=== PATIENT | female | born 1950 | race Caucasian/White ===

== ENCOUNTER → 2016-06-25 | Outpatient (CLI) | payer BC ==
[~2016-06-25] MED LIST: ACT300 PO; CALC200T PO; IMD/2 PO; LEVO75TA PO; MISCCAP80 PO; SERT50TA PO; TRAMTAB5 PO
--- NOTE | 2016-06-25 14:37 | MAMMOGRAPHY REPORT ---
BILATERAL DIGITAL SCREENING MAMMOGRAM WITH CAD: 06/25/2016 CLINICAL HISTORY: Routine screening. Patient has no complaints. TECHNIQUE: Current study was also evaluated with a Computer Aided Detection (CAD) system. COMPARISON: Comparison is made to exams dated: 06/23/2015 mammogram, 06/22/2014 mammogram, 06/19/2013 mammogram, 06/16/2012 mammogram, and 06/11/2011 mammogram - [facility]. BREAST COMPOSITION: There are scattered areas of fibroglandular density in both breasts. FINDINGS: The parenchymal pattern is unchanged. There are a few stable punctate benign-appearing m icrocalcifications. No developing mass, architectural distortion or cluster of suspicious microcalc ifications is seen in either breast. IMPRESSION: ACR BI-RADS CATEGORY 2: BENIGN There is no mammographic evidence of malignancy. A 1 year screening mammogram is recommended. The p atient will receive written notification of the results. Approximately 10% of breast cancers are not detected with mammography. A negative mammographic repor t should not delay biopsy if a clinically suggestive mass is present. Rosa Day M.D. ay/:06/25/2016 12:41:29 Clinical Quality Rn: Bridgette Goins, [facility] letter sent: Normal 1/2 BI-RADS Code: ACR BI-RADS Category 2: Benign
== END | disposition home or self-care (01) ==
LOC: C.MAMM 08:57
PROVIDERS: ATTEND Internal Medicine
DX: Z12.31 Encounter for screening mammogram for malignant neoplasm of breast (principal)

== ENCOUNTER → 2016-06-25 | Outpatient (CLI) | payer BC | END | disposition home or self-care (01) | LOC: C.LABSPEC 17:02 | PROVIDERS: ATTEND Podiatrist Foot & Ankle Surgery | DX: L60.0 Ingrowing nail (principal); Z12.31 Encounter for screening mammogram for malignant neoplasm of breast ==

== ENCOUNTER → 2016-08-13 | Outpatient (CLI) | payer BC ==
[2016-08-13 10:23] LABS: ALT/SGPT 33 U/L (12-78); BLOOD UREA NITROGEN 19 mg/dl (7-18); BUN/CREATININE RATIO 21.6 (10-20); CALCIUM 10.4 mg/dl (8.5-10.1); CARBON DIOXIDE 29 mmol/L (21-32); CHLORIDE 103 mmol/L (98-107); GLUCOSE 126 mg/dl (70-99); POTASSIUM 4.6 mmol/L (3.5-5.1); SODIUM 140 mmol/L (136-145)
[2016-08-13 10:33] LABS: ALB/GLOB RATIO 0.9 (0.9-2); ALKALINE PHOSPHATASE 168 U/L (45-117); AST/SGOT 22 U/L (15-37)
[2016-08-13 10:44] LABS: ESTIMATED AVERAGE GLUCOSE 137 mg/dl; HA1C FLAG Normal (Normal)
== END | disposition home or self-care (01) ==
LOC: C.LAB1850 08:59
PROVIDERS: ATTEND Internal Medicine Endocrinology, Diabetes & Metabolism
DX: E11.9 Type 2 diabetes mellitus without complications (principal); E03.9 Hypothyroidism, unspecified; E83.52 Hypercalcemia

== ENCOUNTER → 2016-08-28 | Outpatient (CLI) | payer BC | END | disposition home or self-care (01) | LOC: C.LAB 12:35 | PROVIDERS: ATTEND Nurse Practitioner Family | DX: N39.0 Urinary tract infection, site not specified (principal); R35.0 Frequency of micturition ==

== ENCOUNTER → 2016-09-24 | Outpatient (CLI) | payer BC | END | disposition home or self-care (01) | LOC: C.LABSPEC 17:27 | PROVIDERS: ATTEND Nurse Practitioner Family | DX: N39.0 Urinary tract infection, site not specified (principal) ==

== ENCOUNTER → 2016-10-04 | Outpatient (CLI) | payer BC ==
[2016-10-04 13:04] LABS: ESTIMATED AVERAGE GLUCOSE 126 mg/dl; HA1C FLAG Normal (Normal)
[2016-10-04 13:07] LABS: CALCIUM 10.9 mg/dl (8.5-10.1)
== END | disposition home or self-care (01) ==
LOC: C.LAB1850 11:52
PROVIDERS: ATTEND Physician Assistant
DX: E11.9 Type 2 diabetes mellitus without complications (principal); E83.52 Hypercalcemia

== ENCOUNTER → 2016-10-15 | Outpatient (CLI) | payer BC ==
[2016-10-15 10:32] LABS: ALT/SGPT 50 U/L (12-78); CALCIUM 9.4 mg/dl (8.5-10.1); CREATININE 0.78 mg/dl (0.60-1.20)
[2016-10-15 10:43] LABS: CHOLESTEROL 194 mg/dl (0-200); CHOLESTEROL/HDL RATIO 2.7; HDL CHOLESTEROL 71 mg/dl; LDL CHOLESTEROL CALCULATED 106 mg/dl; TRIGLYCERIDES 83 mg/dl (0-150); VERY LOW DENSITY LIPOPROT CALC 17 mg/dl
[2016-10-15 10:49] LABS: CALCIUM URINE 9.3 mg/dl
[2016-10-15 11:56] LABS: ESTIMATED AVERAGE GLUCOSE 123 mg/dl; HA1C FLAG Normal (Normal)
[2016-10-19 02:16] LABS: PARATHYR RELATED PROT *34478X 17 pg/mL (14-27)
== END | disposition home or self-care (01) ==
LOC: C.LAB1850 08:40
PROVIDERS: ATTEND Physician Assistant
DX: E83.52 Hypercalcemia (principal); M85.80 Other specified disorders of bone density and structure, unspecified site; E11.9 Type 2 diabetes mellitus without complications; E78.5 Hyperlipidemia, unspecified

== ENCOUNTER → 2016-12-25 | Outpatient (CLI) | payer BC ==
[2016-12-25 12:28] LABS: ESTIMATED AVERAGE GLUCOSE 131 mg/dl; HA1C FLAG Normal (Normal)
[2016-12-25 12:48] LABS: ALT/SGPT 33 U/L (12-78); CHOLESTEROL 140 mg/dl (0-200); CREATININE 0.77 mg/dl (0.60-1.20); TRIGLYCERIDES 79 mg/dl (0-150); VERY LOW DENSITY LIPOPROT CALC 16 mg/dl
[2016-12-25 12:49] LABS: CHOLESTEROL/HDL RATIO 2.2; HDL CHOLESTEROL 65 mg/dl; LDL CHOLESTEROL CALCULATED 59 mg/dl
[2016-12-25 14:11] LABS: RATIO 10.9 mcg/mg (0-30.0)
== END | disposition home or self-care (01) ==
LOC: C.LAB1850 10:20
PROVIDERS: ATTEND Internal Medicine Endocrinology, Diabetes & Metabolism
DX: E87.5 Hyperkalemia (principal); E11.9 Type 2 diabetes mellitus without complications

== ENCOUNTER → 2017-01-21 | Outpatient (CLI) | payer BC ==
--- NOTE | 2017-01-21 13:06 | DIAGNOSTIC IMAGING REPORT ---
HEAD WITHOUT CONTRAST (CT) CLINICAL HISTORY: 66 years-old Female presenting with fall, head injury, headache, nausea and vomiting, vision changes. TECHNIQUE: Multidetector CT imaging of the head was performed without the use of intravenous contrast. IV contrast: None. A dose lowering technique was used consistent with the principles of ALARA (as low as reasonably achievable). COMPARISON: None. CT DOSE (mGy.cm): The estimated cumulative dose is 537.48 mGy.cm. FINDINGS: Maintenance Custodian topogram: Unremarkable. Ventricles and sulci normal in size. Brain parenchyma normal in appearance with preserved osuna-white differentiation. No mass effect or midline shift. No hemorrhage or acute territorial infarct. No extra-axial fluid collection. Polypoid mucosal thickening in the right maxillary sinus. Calvarium intact. IMPRESSION: 1. No acute intracranial pathology. Electronically signed by: Vinny Schulte M.D. 01/21/2017 1:05 PM Dictated Date/Time: 01/21/2017 1:03 PM
== END | disposition home or self-care (01) ==
LOC: C.CTS 12:44
PROVIDERS: ATTEND Nurse Practitioner Adult Health
DX: S09.90XA Unspecified injury of head, initial encounter (principal); W19.XXXA Unspecified fall, initial encounter; R11.2 Nausea with vomiting, unspecified

== ENCOUNTER → 2017-01-21 | Outpatient (CLI) | payer BC ==
--- NOTE | 2017-01-21 09:28 | DIAGNOSTIC IMAGING REPORT ---
CERVICAL SPINE 5 VIEWS HISTORY: Neck pain. S19.9XXA Injury of neckW19.XXXA [id number] COMPARISON: Cervical spine 11/12/2013. FINDINGS: The cervical spine is visualized from C1 through the superior endplate of T1. There is no fracture. No subluxation. Mild reversal of the normal lordotic curvature, unchanged. Moderate to severe disc space narrowing at C5-C6 and C6-C7 with endplate osteophytes. This is also unchanged. [id number]-[id number] facet osteoarthritis throughout the cervical spine most pronounced in the lower cervical region. Mild right and mild to moderate left neural foraminal narrowing is again noted. Mild levoscoliosis of the cervicothoracic junction. Prevertebral soft tissues and the atlantodens interval are intact. IMPRESSION: No fracture or subluxation within the cervical spine. Degenerative changes are again noted and not significantly changed. Electronically signed by: Christofer Andrade M.D. 01/21/2017 9:27 AM Dictated Date/Time: 01/21/2017 9:25 AM
== END | disposition home or self-care (01) ==
LOC: C.RAD1850 09:09
PROVIDERS: ATTEND Nurse Practitioner Adult Health
DX: S19.9XXA Unspecified injury of neck, initial encounter (principal); W19.XXXA Unspecified fall, initial encounter

== ENCOUNTER → 2017-04-10 | Outpatient (CLI) | payer BC ==
[2017-04-10 12:15] LABS: ESTIMATED AVERAGE GLUCOSE 128 mg/dl; HA1C FLAG Normal (Normal)
[2017-04-10 12:32] LABS: CALCIUM 9.4 mg/dl (8.5-10.1)
[2017-04-10 12:46] LABS: THYROID STIMULATING HORMONE 0.503 uIu/ml (0.300-4.500)
== END | disposition home or self-care (01) ==
LOC: C.LAB 09:47
PROVIDERS: ATTEND Physician Assistant
DX: R35.0 Frequency of micturition (principal); E03.9 Hypothyroidism, unspecified; E11.9 Type 2 diabetes mellitus without complications; E83.52 Hypercalcemia

== ENCOUNTER → 2017-05-24 | Outpatient (CLI) | payer BC | END | disposition home or self-care (01) | LOC: C.LABSPEC 17:37 | PROVIDERS: ATTEND Physician Assistant | DX: N89.8 Other specified noninflammatory disorders of vagina (principal) ==

== ENCOUNTER → 2017-06-03 | Outpatient (CLI) | payer BC | END | disposition home or self-care (01) | LOC: C.LABSPEC 10:56 | PROVIDERS: ATTEND Urology | DX: N39.41 Urge incontinence (principal) ==

== ENCOUNTER → 2017-06-04 | Outpatient (CLI) | payer BC | END | disposition home or self-care (01) | LOC: C.LABSPEC 14:11 | PROVIDERS: ATTEND Physician Assistant | DX: L29.8 Other pruritus (principal) ==

== ENCOUNTER → 2017-06-26 | Outpatient (CLI) | payer BC ==
--- NOTE | 2017-06-26 15:22 | MAMMOGRAPHY REPORT ---
BILATERAL DIGITAL SCREENING MAMMOGRAM TOMOSYNTHESIS WITH CAD: 06/26/2017 CLINICAL HISTORY: Routine screening. Patient has no complaints. TECHNIQUE: Breast tomosynthesis in addition to standard 2D mammography was performed. Current study was also evaluated with a Computer Aided Detection (CAD) system. COMPARISON: Comparison is made to exams dated: 06/25/2016 mammogram, 06/23/2015 mammogram, 06/22/2014 m ammogram, 06/19/2013 mammogram, 06/16/2012 mammogram, and 06/11/2011 mammogram - [facility]. BREAST COMPOSITION: There are scattered areas of fibroglandular density in both breasts. FINDINGS: No suspicious masses, calcifications, or areas of architectural distortion are noted in ei ther breast. There has been no significant interval change compared to prior exams. IMPRESSION: ACR BI-RADS CATEGORY 1: NEGATIVE There is no mammographic evidence of malignancy. A 1 year screening mammogram is recommended. The pa tient will receive written notification of the results. Approximately 10% of breast cancers are not detected with mammography. A negative mammographic report should not delay biopsy if a clinically suggestive mass is present. Majo Rogers M.D. /:06/26/2017 09:01:43 Wrapper Selector: Shanelle TRIVEDI(Libby)(M), [facility] letter sent: Normal 1/2 BI-RADS Code: ACR BI-RADS Category 1: Negative
== END | disposition home or self-care (01) ==
LOC: C.MAMM 08:45
PROVIDERS: ATTEND Internal Medicine
DX: Z12.31 Encounter for screening mammogram for malignant neoplasm of breast (principal)

== ENCOUNTER → 2017-10-17 | Outpatient (CLI) | payer BC | END | disposition home or self-care (01) | LOC: C.LAB1850 10:36 | PROVIDERS: ATTEND Nurse Practitioner Adult Health | DX: N39.41 Urge incontinence (principal) ==

== ENCOUNTER → 2018-01-13 | Outpatient (CLI) | payer BC ==
[2018-01-13 15:02] LABS: ALBUMIN 3.8 gm/dl (3.4-5.0); TOTAL PROTEIN 7.9 gm/dl (6.4-8.2)
== END | disposition home or self-care (01) ==
LOC: C.LAB1850 12:37
PROVIDERS: ATTEND Internal Medicine
DX: K74.3 Primary biliary cirrhosis (principal)

== ENCOUNTER 2024-01-28 05:41 | Observation (INO) ==
--- NOTE | 2024-01-03 13:48 | PAT Medication Instructions ---
Medication Instructions Date of Service January 03, 2024 Home Medications Medication Instructions Recorded triamcinolone acetonide 0.1 % 1 applic topical BID #453.6 grams 05/17/23 topical cream atorvastatin 20 mg tablet 20 mg PO QPM #90 tabs 06/19/23 methenamine hippurate 1 gram tablet 1 g PO BID #180 tabs 09/12/23 mupirocin 2 % topical ointment 1 applic topical BID #15 grams 10/09/23 meloxicam 7.5 mg tablet 7.5 - 15 mg (1 - 2 x 7.5 mg) PO 11/06/23 DAILY #30 tabs levothyroxine 88 mcg tablet 88 mcg PO QAM #90 tabs 11/25/23 aspirin 81 mg tablet 81 mg PO QAM ascorbic acid (vitamin C) 1,000 mg tablet (Vitamin C) 1 g PO QAM calcium carbonate (Calcium 500) 500 mg PO QAM triamcinolone acetonide 0.1 % topical cream 1 applic topical BID atorvastatin 20 mg tablet 20 mg PO QPM methenamine hippurate 1 gram tablet 1 g PO BID mupirocin 2 % topical ointment 1 applic topical BID meloxicam 7.5 mg tablet 7.5 - 15 mg (1 - 2 x 7.5 mg) PO DAILY levothyroxine 88 mcg tablet 88 mcg PO QAM Probiotic 1 cap PO DAILY bupropion HCl 150 mg tablet,12 hr sustained-release 150 mg PO QAM cranberry 500 mg capsule 500 mg PO BID escitalopram oxalate 10 mg tablet 10 mg PO QAM tirzepatide 2.5 mg/0.5 mL subcutaneous pen injector (Mounjaro) 2.5 mg subcut Q7D ursodiol 300 mg capsule 600 mg PO BID STOP 7 days before surgery tirzepatide 2.5 mg/0.5 mL subcutaneous pen injector (Mounjaro) 2.5 mg subcut Q7D ASK your surgeon for instructions meloxicam 7.5 mg tablet 7.5 - 15 mg (1 - 2 x 7.5 mg) PO DAILY ASK your prescriber and surgeon aspirin 81 mg tablet 81 mg PO QAM STOP taking 24 hours before surgery triamcinolone acetonide 0.1 % topical cream 1 applic topical BID mupirocin 2 % topical ointment 1 applic topical BID DO NOT take the morning of surgery ascorbic acid (vitamin C) 1,000 mg tablet (Vitamin C) 1 g PO QAM calcium carbonate (Calcium 500) 500 mg PO QAM Probiotic 1 cap PO DAILY cranberry 500 mg capsule 500 mg PO BID ursodiol 300 mg capsule 600 mg PO BID Take morning of surgery With a small sip of water, OTHERWISE NOTHING TO EAT OR DRINK AFTER MIDNIGHT: methenamine hippurate 1 gram tablet 1 g PO BID levothyroxine 88 mcg tablet 88 mcg PO QAM bupropion HCl 150 mg tablet,12 hr sustained-release 150 mg PO QAM escitalopram oxalate 10 mg tablet 10 mg PO QAM Take evening before surgery atorvastatin 20 mg tablet 20 mg PO QPM methenamine hippurate 1 gram tablet 1 g PO BID cranberry 500 mg capsule 500 mg PO BID ursodiol 300 mg capsule 600 mg PO BID Other Notes If you have any questions please call us at [phone] or [phone] or [phone] or [phone]
--- NOTE | 2024-01-08 13:04 | Anesthesiology Consultation ---
Date of Service January 08, 2024 Assessment & Plan (1) Encounter for pre-operative examination: - Check BSG AM DOS - Infectious disease screening: Per assessment on 01/08/24: No known recent infectious disease contacts or current infectious disease symptoms. - Tirzepatide instructions: Patient informed at PAT visit to stop 7 days prior to surgery- voiced understanding. DOS 01/27. Advised last dose to be 01/19. - Preop EKG: Done 01/08/[address]/TWA, consider lateral ischemia. Patient made aware cardiac preop evaluation needed prior to surgery > Scheduled with [facility] cardio. Patient acceptable risk for surgery pending preop cardiology evaluation ([facility], appt 01/22). Chart Review Chart Review: Patient seen in Pre Admission Testing Teaching & Discussion Pre-Anesthesia Teaching/Discussion Notes: Instructed NPO after midnight before surgery,except medications with 15 cc of water. Medication instructions provided according to the [facility] guidelines. History Surgery Operation Date: 01/28/24 07:15 Proposed Procedures p C5-C6, C6-C7 Cervical Artificial Disc Arthroplasty - Mark Anthony Crain MD Height/Weight Height: 5 ft 1 in Weight: 72.7 kg Allergies Allergy/AdvReac Type Severity Reaction Status Date / Time doxycycline Allergy Unknown Tongue Verified 01/03/24 12:53 swelling metformin Allergy GI Upset Verified 01/06/24 16:14 propranolol [From Inderal LA] Allergy Unknown Verified 01/03/24 12:53 sulfamethoxazole Allergy Hives Verified 01/03/24 12:53 [From Bactrim] trimethoprim [From Bactrim] Allergy Hives Verified 01/03/24 12:53 codeine AdvReac Unknown GI upset Verified 01/03/24 12:53 erythromycin base AdvReac Unknown GI upset Verified 01/03/24 12:53 Medications Home Medications Medication Instructions Recorded Confirmed Last Taken aspirin 81 mg tablet 81 mg PO QAM 12/13/18 01/03/24 05/11/22 ascorbic acid (vitamin C) 1,000 mg 1 g PO QAM 01/05/19 01/03/24 05/16/22 tablet (Vitamin C) calcium carbonate (Calcium 500) 500 mg PO QAM 01/05/19 01/03/24 01/18/19 triamcinolone acetonide 0.1 % 1 applic topical BID #453.6 grams 05/17/23 01/03/24 Unknown topical cream atorvastatin 20 mg tablet 20 mg PO QPM #90 tabs 06/19/23 01/03/24 Unknown methenamine hippurate 1 gram tablet 1 g PO BID #180 tabs 09/12/23 01/03/24 Unknown mupirocin 2 % topical ointment 1 applic topical BID #15 grams 10/09/23 01/03/24 Unknown meloxicam 7.5 mg tablet 7.5 - 15 mg (1 - 2 x 7.5 mg) PO 11/06/23 01/03/24 Unknown DAILY #30 tabs levothyroxine 88 mcg tablet 88 mcg PO QAM #90 tabs 11/25/23 01/03/24 Unknown Probiotic 1 cap PO DAILY 01/03/24 01/03/24 Unknown bupropion HCl 150 mg tablet,12 hr 150 mg PO QAM 01/03/24 01/03/24 Unknown sustained-release cranberry 500 mg capsule 500 mg PO BID 01/03/24 01/03/24 Unknown escitalopram oxalate 10 mg tablet 10 mg PO QAM 01/03/24 01/03/24 Unknown tirzepatide 2.5 mg/0.5 mL 2.5 mg subcut Q7D 01/03/24 01/03/24 Unknown subcutaneous pen injector (Patrick) ursodiol 300 mg capsule 600 mg PO BID 01/03/24 01/03/24 Unknown Past Medical History Medical History Asthma Per records, patient denies Cervical stricture or stenosis Degenerative disc disease, cervical Depression Diabetes mellitus, type 2 NIDDM Diabetic peripheral neuropathy associated with type 2 diabetes mellitus Dyslipidemia Frequent UTI No current issues History of colon polyps History of COVID-19 07/2021: headache,"cold like symtoms" > resolved History of cystocele History of migraine History of renal calculi Hx of benign essential tremor Tremor "resolved" after [facility] focus ultrasound Hx of blood clots Right optic nerve clot ~2019, 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 Hypothyroidism IBS (irritable bowel syndrome) Memory loss or impairment Osteoarthritis Osteopenia Overactive bladder Primary biliary cirrhosis Taking Ursodiol "Controlled" Rosacea Scoliosis Stenosis, spinal, lumbar Unsteady gait Urge incontinence of urine Past Family History Family History Mother Breast cancer Brother Hypertension Daughter Family history of reaction to anesthesia "she gets mean" Grandmother (Paternal) Family history of diabetes mellitus Diabetes Myocardial infarction Uncle Esophageal cancer Sister Hypertension Aunt Ovarian cancer Denies family history of Prostate cancer Past Surgical History Surgical History History of blepharoplasty History of colonoscopy History of esophagogastroduodenoscopy (EGD) History of knee replacement Left History of partial hysterectomy History of rhytidectomy Nausea and vomiting after administration of anesthetic agent S/P implantation of urinary electronic stimulator device Removed Past Anesthesia History No Hx of Anesthesia Complications and No Family Hx of Anesthesia Complications History of PONV History of PONV (Single episode) and Hx of Motion Sickness (Boats) Social History Smoking Status: Current every day smoker tobacco type: cigarettes Smoking cigarettes per day: 15 cigs/day Do You Dip or Chew Tobacco: No Hx Alcohol Use: Yes Alcohol type: wine alcohol intake frequency: holidays/special occasions only Hx Substance Use: No substance use type: does not use Review of Systems Patient denies chest pain, shortness of breath, fever, chills, cough, wheezing, palpitations. Physical Exam Vital Signs BP 104/68 P 59 TEMP 97.5 SP02 96%RA RESP 16 Physical Mildly decreased cervical extension range of motion. Full TMJ range of motion. TMD 3 finger breaths Mallampati Score III Dentition: intact, implants (several upper/lower- exact locations unsure) Lungs: clear throughout to auscultation Cardiac: regular rate and rhythm, no murmurs noted Spine: normal Carotid arteries: negative bruit Extremities: no LE edema Lab Results Anesthesia Preop Results Results Anesthesia Widget: WBC 7.33 K/ul (4.8-10.8) 01/08/24 Hgb 16.2 g/dl (12.0-16.0) H 01/08/24 Hct 47.1 % (37.0-47.0) H 01/08/24 Plt 266 K/uL (130-400) 01/08/24 Na 139 mmol/L (136-145) 01/08/24 K 4.6 mmol/L (3.5-5.1) 01/08/24 Cl 102 mmol/L (98-107) 01/08/24 CO2 30 mmol/L (21-32) 01/08/24 BUN 18 mg/dl (6-23) 01/08/24 Creat 0.75 mg/dl (0.6-1.2) 01/08/24 Glucose Level 96 mg/dl (70-99(Fasting)) 01/08/24 PT 10.4 Seconds (9.0-12.0) 01/08/24 PTT 26 Seconds (21-31) 01/08/24 INR 1.0 (0.9-1.1) 01/08/24 HA1c 7.0 % (4.5-5.6) H 01/08/24 Blood Type O Negative 01/08/24 Antibody Screen NEGATIVE 01/08/24 Testing Electrocardiogram Date: 01/08/24 SB with sinus arrhythmia at 55bpm. LAFB. ST/TWA, consider lateral ischemia. Chest X-Ray Date: 01/08/24 FINDINGS: The lungs are clear. Cardiac silhouette is normal in size. No pleural effusions. No pneumothorax. Mild S-shaped scoliosis of the thoracolumbar spine again noted. No acute fractures. IMPRESSION: No acute process.
[2024-01-28] MEDS: LR 15ML/HR IV SCH (06:09)
[2024-01-28] MEDS: LR 60ML/HR IV SCH (06:17)
[2024-01-28] MEDS ORDERED: ROCURONIUM BROMIDE 10 MG/ML 5 ML VIAL IV ONE (06:54)
[2024-01-28] MEDS ORDERED: fentaNYL citrate PF 100 MCG/2 ML VIAL ONE ×3 (06:54→08:21)
[2024-01-28] MEDS ORDERED: MIDAZOLAM HCL 1 MG/ML 2ML VIAL ONE (06:54)
[2024-01-28] MEDS ORDERED: ONDANSETRON INJ 2 MG/ML 2 ML VIAL ONE (06:54)
[2024-01-28] MEDS ORDERED: GLYCOPYRROLATE 0.2 MG/ML VIAL ONE (06:54)
[2024-01-28] MEDS ORDERED: PROPOFOL IV EMULSION 10 MG/ML 20 ML VIAL IV ONE (06:54)
[2024-01-28] MEDS ORDERED: DEXAMETHASONE SOD INJ 4 MG/ML VIAL ONE (06:54)
[2024-01-28] MEDS ORDERED: LIDOCAINE 2% 2 ML VIAL/AMP(20MG/ML) INFIL ONE (06:54)
[2024-01-28] MEDS ORDERED: SUGAMMADEX SODIUM 200 MG/2 ML VIAL IV ONE (06:57)
[2024-01-28] MEDS ORDERED: ONDANSETRON INJ 2 MG/ML 2 ML VIAL IV PRN (07:00)
[2024-01-28] MEDS ORDERED: ATROPINE SULFATE 0.1 MG/ML 10ML SYR IV PRN (07:00)
[2024-01-28] MEDS ORDERED: ePHEDrine sulfate 50 MG/ML AMP IV PRN (07:00)
--- NOTE | 2024-01-28 07:17 | History & Physical Bridge Note ---
Date of Service January 28, 2024 History & Physical Bridge Note I have examined the patient, reviewed the History & Physical and in the interval since the performance of the History & Physical I have noted the following changes of clinical significance: no changes noted
[2024-01-28] MEDS: ceFAZolin 2000MG 2,000 MG/15 ML SYR IV SCH (07:20)
[2024-01-28] MEDS: VANCOMYCIN HCL 1000MG/20ML VIAL ONE (08:38)
[2024-01-28] MEDS: THROMBIN 5000 UNITS KIT ONE (10:41)
[2024-01-28] MEDS: GELATIN SPONGE 12-7MM ONE (10:41)
[2024-01-28] MEDS: FLOSEAL HEMOSTATIC MATRIX 10ML TOP ONE (10:42)
[2024-01-28] MEDS ORDERED: DO NOT ADMINISTER PNEUMOCOCCAL VACCINE PRN (10:49)
[2024-01-28] MEDS ORDERED: diphenhydrAMINE Capsule 25 MG CAP PO PRN (10:49)
[2024-01-28] MEDS ORDERED: dexAMETHasone 8 MG in SYRINGE 0 ML IV PRN (10:49)
[2024-01-28] MEDS ORDERED: ONDANSETRON 4 MG OD TAB PO PRN (10:49)
[2024-01-28] MEDS ORDERED: ACETAMINOPHEN 1,000 MG/100 ML VIAL IV PRN (10:49)
[2024-01-28] MEDS ORDERED: RACEPINEPHRINE 2.25% NEBU SOLN 0.5 ML VIAL INH PRN (10:49)
[2024-01-28] MEDS ORDERED: PROMETHAZINE 12.5 MG/50.5 ML BAG IV PRN (10:49)
[2024-01-28] MEDS ORDERED: LORazepam 0.5 MG TAB PO PRN (10:49)
[2024-01-28] MEDS ORDERED: SOD PHOSPHATE/SOD BIPHOSPHATE ENEMA 132 ML BTL PR PRN (10:49)
[2024-01-28] MEDS ORDERED: METOCLOPRAMIDE HCL INJ 5 MG/ML 2 ML VIAL IV PRN (10:49)
[2024-01-28] MEDS ORDERED: hydrOXYzine HCl 25 MG TAB PO PRN (10:49)
[2024-01-28] MEDS ORDERED: LORazepam 2 MG/1 ML VIAL IV PRN (10:49)
[2024-01-28] MEDS ORDERED: NALOXONE HCL 0.4 MG/1 ML VIAL/CARP IV PRN (10:49)
[2024-01-28] MEDS ORDERED: ALUMINUM/MAGNESIUM SUSP 30 ML UDC PO PRN (10:49)
[2024-01-28] MEDS ORDERED: MAGNESIUM HYDROXIDE SUSP 30 ML UDC PO PRN (10:49)
[2024-01-28] MEDS ORDERED: HYDROmorphone INJ 0.5 MG/0.5 ML SYR IV PRN (10:49)
[2024-01-28] MEDS ORDERED: FAMOTIDINE 20 MG TAB PO PRN (10:49)
[2024-01-28] MEDS ORDERED: DO NOT ADMINISTER FLU VACCINE PRN (10:49)
[2024-01-28] MEDS ORDERED: bisacodyL 10 MG SUPP PR PRN (10:49)
--- NOTE | 2024-01-28 10:49 | Post Operative Brief Note ---
PG Immediate Post Op with CF Date of Surgery January 28, 2024 Pre & Post Diagnosis Operation Date: 01/28/24 07:15 Pre-Op Diagnosis: Cervical Stenosis with Radiculopathy Post-Op Diagnosis: Cervical Stenosis with Radiculopathy I identified the patient and participated in the time-out.: Yes Procedure Operation Date: 01/28/24 07:15 Actual Procedures p C5-C6, C6-C7 Cervical Artificial Disc Arthroplasty(Not Applicable) - Mark Anthony Crain MD Surgeon Mark Anthony Crain MD Tractor Operator none Estimated Blood Loss 5 Findings Consistent with Post-Op Diagnosis Specimens Specimen Description: None per surgeon Drains Leos Catheter
[2024-01-28] MEDS: fentaNYL citrate PF 100 MCG/2 ML VIAL IV PRN (11:30)
[2024-01-28 11:58] LABS: BUN Creatinine Ratio 16.7 (10-20); Calcium 9.1 mg/dl (8.6-10.3); Creatinine Clr Calc Pharmacy 61.3 ml/min; Est GFR (African American) 94.9 ml/min; Est GFR (Non-African American) 81.9 ml/min; Potassium 4.1 mmol/L (3.5-5.1)
[2024-01-28] MEDS: hydrALAZINE HCL 20 MG/ML VIAL IV ONE (12:04)
[2024-01-28] MEDS ORDERED: KETOROLAC 30 MG/ML VIAL IV ONE (12:06)
[2024-01-28] MEDS: hydrALAZINE HCL 20 MG/ML VIAL ONE (12:07)
[2024-01-28] MEDS: DEXAMETHASONE SOD INJ 4 MG/ML VIAL ONE (12:13)
--- NOTE | 2024-01-28 12:26 | Fluoroscopy Report ---
FL cervical 2-3V CLINICAL HISTORY: ACDF C5-C7 COMPARISON STUDY: Radiographs 11/22/2023 FLUOROSCOPY TIME: 119 seconds FLUOROSCOPY IMAGES: 9 EXPOSURE DOSE: 56.97 mGy FINDINGS: Endotracheal tube noted. Anterior approach discectomy with disc spacers noted at what is la beled the C5-C6 and C6-C7 levels. Multilevel spondylitic spurring. Alignment appears satisfactory. IMPRESSION: Fluoroscopic assistance as above. ACT 112: Negative or not required by law. Electronically signed by: Beny Dsouza M.D. 01/28/2024 12:25 PM
--- NOTE | 2024-01-28 12:46 | Anesthesiology Progress Note ---
Date of Service January 28, 2024 Anesthesia Post Procedure Vital Signs Vital Signs: Temp Pulse Pulse Resp BP Pulse Ox O2 Del Method 01/28/24 12:25 97.7 F 69 9 L 138/89 92 Nasal Cannula 01/28/24 12:15 59 L 14 158/90 H 93 Oxymask 01/28/24 12:05 58 L 18 177/90 H 92 Oxymask 01/28/24 11:55 79 15 171/105 H 92 Oxymask 01/28/24 11:45 66 12 170/95 H 90 Oxymask 01/28/24 11:35 68 12 168/98 H 91 Oxymask 01/28/24 11:25 67 13 174/108 H 93 Oxymask 01/28/24 11:15 67 13 192/102 H 91 Oxymask 01/28/24 11:05 65 12 179/105 H 93 Oxymask 01/28/24 10:55 96.8 F L 65 14 179/100 H 95 Oxymask 01/28/24 06:03 97.9 F 68 20 146/99 H 97 Room Air O2 Flow Rate 01/28/24 12:25 3 01/28/24 12:15 5 01/28/24 12:05 5 01/28/24 11:55 5 01/28/24 11:45 5 01/28/24 11:35 5 01/28/24 11:25 5 01/28/24 11:15 5 01/28/24 11:05 5 01/28/24 10:55 5 01/28/24 06:03 Pain Intensity Neck: Pain Intensity: 5 Bilateral Arm: Pain Intensity: 7 Transfer of Care Handoff Completed per policy Notes Mental Status: alert / awake / arousable and participated in evaluation Patient Amnestic to Procedure: Yes Nausea / Vomiting: adequately controlled Pain: adequately controlled Airway Patency, RR, SpO2: stable & adequate BP & HR: stable & adequate Hydration State: stable & adequate Anesthetic Complications: no major complications apparent and Pt Satisfied with anesthetic care
[2024-01-28] MEDS: KETOROLAC 30 MG/ML VIAL ONE (13:19)
[2024-01-28] MEDS: LACTATED RINGER'S 1,000 ML IV SCH (13:25)
[2024-01-28] MEDS ORDERED: PHARMACY GLYCEMIC MGMT CONSULT PRN (14:02)
[2024-01-28] MEDS ORDERED: DEXTROSE 50% 50 ML SYRINGE IV PRN (14:15)
[2024-01-28] MEDS ORDERED: CARBOHYDRATES FOR HYPOGLYCEMIA PO PRN (14:15)
[2024-01-28] MEDS ORDERED: GLUCOSE 10 TAB/TUBE PO PRN (14:15)
[2024-01-28] MEDS ORDERED: GLUCOSE 40% GEL 15 GM TUBE PO PRN (14:15)
[2024-01-28] MEDS ORDERED: GLUCAGON FOR INJ 1 MG VIAL IM PRN (14:15)
[2024-01-28] MEDS: dexAMETHasone 4 MG in SYRINGE 0 ML IV ONE (14:16)
--- NOTE | 2024-01-28 14:21 | Pharmacy Report ---
Pharmacy Glycemic Short Note 2 - Date of Service January 28, 2024 - Glycemic Short BSG Results (Last 24 hours): 01/28/24 01/28/24 01/28/24 05:55 10:56 11:22 Glucose 219 H POC Glucose 133 H 168 H 01/28/24 13:17 Glucose POC Glucose 203 H OUTPATIENT ANTIDIABETIC REGIMEN: * mounjaro 2.5 mg SQ weekly ASSESSMENT: * 73 year old s/p surgery, POD 0 - pharmacy consulted for glycemic management. Patient received IV steroids intraoperatively and postop therefore anticipate steroid induced hyperglycemia. Postop BSG >200, will start novolog weight based dosing 2/3 and will begin basal 0.2 units/kg x 1 now. PLAN FOR INPATIENT GLYCEMIC CONTROL: * Hold outpatient oral diabetes medications * Basal insulin * Lantus 15 units x 1 * Bolus insulin * NovoLog per scale ACHS or Q6hrs while NPO * Goal Range: Low 110 mg/dL - High 140 mg/dL * Correction Factor: 25 mg/dL/unit * Nutritional / Prandial insulin per carb ratio of 1 unit per 8 grams CHO consumed
[2024-01-28] MEDS: LANTUS PER UNIT CHARGE SC ONE (14:26)
[2024-01-28] MEDS: INSULIN ASPART PER UNIT CHARGE SC SCH (14:26)
--- NOTE | 2024-01-28 16:32 | Hospitalist Consultation ---
Date of Consultation January 28, 2024 Assessment & Plan (1) Spinal stenosis of cervical region with radiculopathy: s/p C5-C6, C6-C7 Cervical Artificial Disc Arthroplasty(Not Applicable) - Mark Anthony Crain MD [address] IVF/abx/pain control, bowel regimen, therapy evaluations, management per primary service Ancef bre-operative abx Dexamethasone 8mg IV provided, does not appear to be ongoing order though Diet advancement as tolerated Labs in AM (2) Diabetes mellitus, type 2: A1c 7.0 on pre-op lab testing On mounjaro at baseline -- however, did hold prior to procedure given constipation. Last dose last Saturday. Pharmacy on consult for glycemic management while inpatient, appreciate assistance Check B12 w/ AM labs for completeness given neuropathy. Remains on synthroid 88mcg daily, TSH wnl in September 2023, no need for repeat Hx HLD -Continue atorvastatin 20mg daily (3) Hypercalcemia: on pre-op lab testing, normalized on repeat testing prior to surgery. check Vit D w/ AM labs for completeness (4) Primary biliary cirrhosis: follows with [facility], continues on ursodiol PO BID Anxiety/depression - Continue wellbutrin, lexapro Plan Thank you for allowing hospitalist service to participate in the care of Ms Aragon. Hospitalist service will follow along in AM. Please call with any questions/concerns. Supervising Physician Co-Signing Physician Notes The patient was seen by me. The chart was reviewed. Case discussed with NICHOLAS Queen. Agree with assessment and plan History of Present Illness Reason for Consultation: medical management Requesting Physician: Dr Crain Attending Physician: Mark Anthony Crain MD History of Present Illness 73yo female with PMHx significant for DM II, HLD, Hypothyroidism, peripheral neuropathy, primary biliary cholangitis and spinal stenosis presented for C5-C6, C6-C7 Cervical Artificial Disc Arthroplasty on 01/28/[address] Crain. EB 5c Patient evaluated in 302, significant other/boyfriend of 12 years at bedside. Reports had some water, no issues with swallowing such. About to have dinner tray delivered. She reports she was up to urinate but has been in bed since/wanting to get up/move around but also wanting to get some rest however having some discomfort to her bilateal shoulder/posterior shoulderblade region and suspect from positioning on the table. RN to alert primary service of such/pain medications as needed. Manager Transfer strength remains intact, does have some ongoing numbness/tingling but discussed can be ongoing for some time. Is on mounjaro for DM control - she reports she does have constipation with such but last dose was last Saturday and was to hold for her upcoming surgery. Did have some nausea in the past with anesthesia but no significant complications. Had EKG pre-op w/ nonspecific ST-T wave abnormality on pre-op testing and had seen cardiology who performed limited ECHO which showed moderate LVH now seen but otherwise no significant change and no wma. EF 65-70% No fever/chills, chest pain/shortness of breath. On 1L post-op. Slight nausea but no vomiting/need for medication at this time.Can monitor/order scopalamine patch if desired/ok with primary team if needed. Questions/concerns addressed at this time. Allergies Allergy/AdvReac Type Severity Reaction Status Date / Time doxycycline Allergy Severe Tongue Verified 01/28/24 05:57 swelling metformin Allergy Intermediate GI Upset Verified 01/28/24 05:57 sulfamethoxazole Allergy Intermediate Hives Verified 01/28/24 05:57 [From Bactrim] trimethoprim [From Bactrim] Allergy Intermediate Hives Verified 01/28/24 05:57 propranolol [From Inderal LA] Allergy Unknown Unknown Verified 01/28/24 05:57 codeine AdvReac Intermediate GI upset Verified 01/28/24 05:57 erythromycin base AdvReac Intermediate GI upset Verified 01/28/24 05:57 Home Medications Medication Instructions Recorded Confirmed Type aspirin 81 mg tablet 81 mg PO QAM 12/13/18 01/28/24 History ascorbic acid (vitamin C) 1,000 mg 1 g PO QAM 01/05/19 01/28/24 History tablet (Vitamin C) calcium carbonate (Calcium 500) 500 mg PO QAM 01/05/19 01/28/24 History triamcinolone acetonide 0.1 % 1 applic topical BID #453.6 grams 05/17/23 01/28/24 Rx topical cream mupirocin 2 % topical ointment 1 applic topical BID #15 grams 10/09/23 01/28/24 Rx meloxicam 7.5 mg tablet 7.5 - 15 mg (1 - 2 x 7.5 mg) PO 11/06/23 01/28/24 Rx DAILY #30 tabs levothyroxine 88 mcg tablet 88 mcg PO QAM #90 tabs 11/25/23 01/28/24 Rx Probiotic 1 cap PO DAILY 01/03/24 01/28/24 History bupropion HCl 150 mg tablet,12 hr 150 mg PO QAM 01/03/24 01/28/24 History sustained-release (Wellbutrin SR) cranberry 500 mg capsule 500 mg PO BID 01/03/24 01/28/24 History escitalopram oxalate 10 mg tablet 10 mg PO QAM 01/03/24 01/28/24 History (Lexapro) tirzepatide 2.5 mg/0.5 mL 2.5 mg subcut Q7D 01/03/24 01/28/24 History subcutaneous pen injector (Mounjaro) ursodiol 300 mg capsule 600 mg PO BID 01/03/24 01/28/24 History atorvastatin 20 mg tablet (Lipitor) 20 mg PO QPM 01/28/24 01/28/24 History methenamine hippurate 1 gram 1 g PO BID 01/28/24 01/28/24 History tablet (Hiprex) Patient History Medical History Unsteady gait Urge incontinence of urine Scoliosis Stenosis, spinal, lumbar Osteopenia Rosacea Memory loss or impairment IBS (irritable bowel syndrome) Overactive bladder Hypothyroidism Hx of Isamar thyroiditis Dyslipidemia Diabetic peripheral neuropathy associated with type 2 diabetes mellitus Diabetes mellitus, type 2 NIDDM Depression Asthma Per records, patient denies Hx of benign essential tremor Tremor "resolved" after [facility] focus ultrasound Frequent UTI No current issues Cervical stricture or stenosis Hx of blood clots Right optic nerve clot ~2019, residual right sided vision impairment History of COVID-19 07/2021: headache,"cold like symtoms" > resolved History of migraine History of colon polyps Degenerative disc disease, cervical Osteoarthritis Primary biliary cirrhosis Taking Ursodiol "Controlled" History of renal calculi History of cystocele Surgical History History of rhytidectomy Nausea and vomiting after administration of anesthetic agent History of blepharoplasty History of esophagogastroduodenoscopy (EGD) History of colonoscopy History of partial hysterectomy History of knee replacement Left S/P implantation of urinary electronic stimulator device Removed Family History Mother Breast cancer Brother Hypertension Daughter Family history of reaction to anesthesia "she gets mean" Grandmother (Paternal) Family history of diabetes mellitus Diabetes Myocardial infarction Uncle Esophageal cancer Sister Hypertension Aunt Ovarian cancer Denies family history of Prostate cancer Social History Smoking Status: Current every day smoker Tobacco Type: Cigarettes packs per day: 0.5; Cigarettes Per Day: 15 cigs/day; Second Hand Exposure: No; Do You Dip or Chew Tobacco: No; Tobacco Cessation Education Requested by Patient: No Hx Alcohol Use: Yes Alcohol type: wine Alcohol Intake Frequency: 2-3 x/Week Hx Substance Use: No Preferred Language: Chinese Communication Ability: Effective Visual Impairment: No Limitations Hearing Ability: Normal [employer] Offbearer Required: No Beliefs That Will Affect Care: None marital status: Single Current Living Situation: Significant Other current occupational status: retired Other Information That Helps Us Care for You: No Feels Safe at Home: Yes Safety Concerns: Feels Safe At This Time Childhood Exposure to Second-Hand Smoke: Yes Dental Care, Regularly: Yes Physical Activity Frequency: Daily Seatbelt Use: always Sunscreen Use: Yes Assistive Devices: None Physical Exam Physical Exam: General: 73yo female sitting up in bed, significant other at bedside, NAD but reporting pain to her shoulders HEENT: dressing to neck c/d/i, output noted. 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 intact bilaterally and pulses present +tenderness to posterior shoulders bilaterally, reproducible, no obvious rashes/lesions (?positioning from surgery) Psych: AOx3, cooperative but fatigued appearing Results & Data Results & Data Vital Signs (Past 12 Hours) Vital Signs Temp Pulse Pulse Resp BP Pulse Ox O2 Del Method 01/28/24 16:00 36.5 C 60 17 143/76 H 97 Nasal Cannula 01/28/24 15:02 36.5 C 60 17 132/79 98 Nasal Cannula 01/28/24 14:53 Nasal Cannula 01/28/24 14:49 18 95 Nasal Cannula 01/28/24 14:00 36.4 C L 63 17 123/75 98 Nasal Cannula 01/28/24 13:31 36.3 C L 71 17 125/77 96 Nasal Cannula 01/28/24 13:02 86 18 93 Nasal Cannula 01/28/24 13:00 36.5 C 73 17 133/79 2 L Nasal Cannula 01/28/24 12:25 36.5 C 69 9 L 138/89 92 Nasal Cannula 01/28/24 12:15 59 L 14 158/90 H 93 Oxymask 01/28/24 12:05 58 L 18 177/90 H 92 Oxymask 01/28/24 11:55 79 15 171/105 H 92 Oxymask 01/28/24 11:45 66 12 170/95 H 90 Oxymask 01/28/24 11:35 68 12 168/98 H 91 Oxymask 01/28/24 11:25 67 13 174/108 H 93 Oxymask 01/28/24 11:15 67 13 192/102 H 91 Oxymask 01/28/24 11:05 65 12 179/105 H 93 Oxymask 01/28/24 10:55 36.0 C L 65 14 179/100 H 95 Oxymask 01/28/24 06:03 36.6 C 68 20 146/99 H 97 Room Air O2 Flow Rate 01/28/24 16:00 1 01/28/24 15:02 2 01/28/24 14:53 2 01/28/24 14:49 2 01/28/24 14:00 2 01/28/24 13:31 2 01/28/24 13:02 2 01/28/24 13:00 93 01/28/24 12:25 3 01/28/24 12:15 5 01/28/24 12:05 5 01/28/24 11:55 5 01/28/24 11:45 5 01/28/24 11:35 5 01/28/24 11:25 5 01/28/24 11:15 5 01/28/24 11:05 5 01/28/24 10:55 5 01/28/24 06:03 Laboratory Results 01/28/24 01/28/24 01/28/24 Range/Units 13:17 11:22 10:56 Sodium 137 (136-145) mmol/L Potassium 4.1 (3.5-5.1) mmol/L Chloride 103 (98-107) mmol/L Carbon Dioxide 27 (21-32) mmol/L Anion Gap 7 (3-11) BUN 12 (6-23) mg/dl Creatinine 0.72 (0.6-1.2) mg/dl Est Cr Clr Drug Dosing 61.3 ml/min Est GFR ( Amer) 94.9 ml/min Est GFR (Non-Af Amer) 81.9 ml/min BUN/Creatinine Ratio 16.7 (10-20) Glucose 219 H (70-99(Fasting)) mg/dl POC Glucose 203 H 168 H (70-99) mg/dl Calcium 9.1 (8.6-10.3) mg/dl 01/28/24 Range/Units 05:55 Sodium (136-145) mmol/L Potassium (3.5-5.1) mmol/L Chloride (98-107) mmol/L Carbon Dioxide (21-32) mmol/L Anion Gap (3-11) BUN (6-23) mg/dl Creatinine (0.6-1.2) mg/dl Est Cr Clr Drug Dosing ml/min Est GFR ( Amer) ml/min Est GFR (Non-Af Amer) ml/min BUN/Creatinine Ratio (10-20) Glucose (70-99(Fasting)) mg/dl POC Glucose 133 H (70-99) mg/dl Calcium (8.6-10.3) mg/dl Diagnostic Findings Cervical Spine X-Ray 01/28/24 07:15 FL cervical 2-3V CLINICAL HISTORY: ACDF C5-C7 COMPARISON STUDY: Radiographs 11/22/2023 FLUOROSCOPY TIME: 119 seconds FLUOROSCOPY IMAGES: 9 EXPOSURE DOSE: 56.97 mGy FINDINGS: Endotracheal tube noted. Anterior approach discectomy with disc spacers noted at what is labeled the C5-C6 and C6-C7 levels. Multilevel spondylitic spurring. Alignment appears satisfactory. IMPRESSION: Fluoroscopic assistance as above. ACT 112: Negative or not required by law. Electronically signed by: Beny Dsouza M.D. 01/28/2024 12:25 PM PG Care Time/CCT Total # of Minutes Spent Total Time Spent with Patient: Total time spent is greater than 50% in coordination of care (as documented) at patient's floor/unit and/or counseling patient: Coding Level of Care Code 01076 IN/OBS CONSULT LVL 3,45M Diagnoses Spinal stenosis of cervical region with radiculopathy M48.02; M54.12 Diabetes mellitus, type 2 E11.9 Hypercalcemia E83.52 Primary biliary cirrhosis K74.3
[2024-01-28] MEDS: ceFAZolin 1000MG 1,000 MG/7.5 ML SYR IV SCH (17:31)
[2024-01-28] MEDS: ursodioL 300 MG CAP PO SCH (20:56)
[2024-01-28] MEDS: DOCUSATE SODIUM/SENNA 50/8.6MG TAB PO SCH (20:56)
[2024-01-28] MEDS: oxyCODONE/ACETAMINOPHEN 5mg/325mg TAB PO PRN (20:57)
[2024-01-28] MEDS: MUPIROCIN 2% OINT 22 GM TUBE TOP SCH (20:57)
[2024-01-29] MEDS: INSULIN ASPART PER UNIT CHARGE SC SCH (00:24)
[2024-01-29] MEDS: ACETAMINOPHEN 500 MG TAB PO PRN (01:37)
[2024-01-29] MEDS: LEVOTHYROXINE SODIUM 88 MCG TABLET PO SCH (06:07)
[2024-01-29] MEDS: POLYETHYLENE (MIRALAX) 17 GM PACK PO SCH (06:08)
[2024-01-29 06:47] LABS: Basophils # (auto) 0.01 K/uL (0.00-0.20); Basophils % (auto) 0.1 %; Hematocrit (blood only) 46.9 % (37.0-47.0); Hemoglobin 16.1 g/dl (12.0-16.0); Immature Granulocytes # (auto) 0.04 K/uL (0.01-0.20); Immature Granulocytes % (auto) 0.4 %; Lymphocytes # (auto) 1.28 K/uL (1.20-3.40); Lymphocytes % (auto) 11.5 %; Mean Corpuscular Hemoglobin 32.7 pg (25.0-34.0); Mean Corpuscular Hgb Conc 34.3 g/dL (32.0-36.0); Mean Corpuscular Volume 95.3 fL (80.0-100.0); Mean Platelet Volume 11.2 fL (9.4-12.4); Monocytes # (auto) 0.71 K/uL (0.11-0.59); Monocytes % (auto) 6.4 %; Neutrophils # (auto) 9.08 K/uL (1.40-6.50); Neutrophils % (auto) 81.6 %; Platelet Count 256 K/uL (130-400); RDW Coefficient of Variation 12.2 % (11.5-14.5); RDW Standard Deviation 42.9 fL (36.4-46.3); Red Blood Count 4.92 M/uL (4.20-5.40); White Blood Count 11.12 K/ul (4.8-10.8)
[2024-01-29 07:16] LABS: BUN Creatinine Ratio 17.2 (10-20); Calcium 9.9 mg/dl (8.6-10.3); Est GFR (African American) 101.2 ml/min; Est GFR (Non-African American) 87.3 ml/min; Magnesium 1.9 mg/dl (1.7-2.4); Potassium 4.7 mmol/L (3.5-5.1)
--- NOTE | 2024-01-29 07:53 | Hospitalist Progress Note ---
Date of Service January 29, 2024 Assessment & Plan (1) Spinal stenosis of cervical region with radiculopathy: Plan: s/p C5-C6, C6-C7 Cervical Artificial Disc Arthroplasty(Not Applicable) - Mark Anthony Crain MD EBL 5cc IVF/abx/pain control, bowel regimen, therapy evaluations, management per primary service Ancef bre-operative abx Dexamethasone 8mg IV provided, does not appear to be ongoing order though Diet advancement as tolerated 01/28 WBC elevation suspected 2nd to steroids. Afebrile. Renal function stable. Hgb around prior. Hx PBC, follows w/ [facility] GI Voltaren gel to shoulders, can send with. Ok'd by Dr Crain Instructed to avoid heavy lifting. Continue mucinex to thin mucus/avoid excessive coughing. Post-op management per primary service Dispo: patient hopeful for discharge per primary service. Ok from medicine standpoint. Please reach out with any questions/concerns. (2) Diabetes mellitus, type 2: Plan: A1c 7.0 on pre-op lab testing On [facility] at baseline -- however, did hold prior to procedure given constipation. Last dose last Saturday. Pharmacy on consult for glycemic management while inpatient, appreciate assistance B12 wnl. Hx HLD -Continue atorvastatin 20mg daily (3) Hypercalcemia: Plan: on pre-op lab testing, normalized on repeat testing prior to surgery. Vit D wnl. Ca remaining stable. (4) Primary biliary cirrhosis: Plan: follows with [facility], continues on ursodiol PO BID. Of note, prior AFP values have been elevated but not as high as in the past Rec f/u with GI for continued monitoring/surveillance. Most recently did have Liver US in November w/ cirrhotic liver morphology, no gall stones. CBD 0.7cm. No masses/obstruction Anxiety/depression - Continue Wellbutrin, lexapro Hypothyroidism Remains on Synthroid 88mcg daily, TSH wnl in September 2023, no need for repeat Plan Thank you for allowing hospitalist service to participate in the care of Ms Aragon. Hospitalist service will sign off at this time. Please call with any questions/concerns. Admission and Anticipated Discharge Date Admission Date: January 28, 2024 Supervising Physician Co-Signing Physician Notes The patient was not seen by me. The chart was reviewed. Case discussed with NICHOLAS Queen. Agree with assessment and plan Subjective Evaluated this morning, dressed and sitting at the side of the bed. Had some dry toast this morning but otherwise tolerating diet. On room air. No CP/SOB. Does have some phlegm in throat and discussed can use mucinex/continue hydration but would avoid excessive forceful coughing. Discussed voltaren for shoulders, ok w/ primary. Planning for discharge today. 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, pulses palpation no slurred speech/facial droop Psych: AOx3, cooperative with exam Results & Data Results & Data Vital Signs (Past 12 Hours) Vital Signs Temp Pulse Pulse Resp BP Pulse Ox O2 Del Method 01/29/24 07:39 36.6 C 60 20 Room Air 01/29/24 07:20 70 15 95 Room Air 01/29/24 06:02 36.8 C 68 18 160/84 H 97 Nasal Cannula 01/29/24 03:58 36.8 C 60 18 148/80 H 96 Nasal Cannula 01/29/24 03:25 62 18 94 Nasal Cannula 01/29/24 02:01 36.8 C 76 18 158/86 H 97 Nasal Cannula 01/29/24 00:00 36.6 C 64 16 157/87 H 96 Nasal Cannula 01/28/24 22:35 56 L 17 98 Nasal Cannula 01/28/24 22:04 36.6 C 60 16 140/80 96 Nasal Cannula 01/28/24 20:25 64 18 95 Room Air 01/28/24 20:10 36.4 C L 62 12 173/95 H 95 Nasal Cannula 01/28/24 20:00 Room Air O2 Flow Rate 01/29/24 07:39 01/29/24 07:20 01/29/24 06:02 2 01/29/24 03:58 2 01/29/24 03:25 2 01/29/24 02:01 2 01/29/24 00:00 01/28/24 22:35 2 01/28/24 22:04 2 01/28/24 20:25 01/28/24 20:10 1 01/28/24 20:00 Laboratory Results 01/29/24 01/29/24 01/29/24 Range/Units 07:24 05:37 03:56 WBC 11.12 H (4.8-10.8) K/ul RBC 4.92 (4.20-5.40) M/uL Hgb 16.1 H (12.0-16.0) g/dl Hct 46.9 (37.0-47.0) % MCV 95.3 (80.0-100.0) fL MCH 32.7 (25.0-34.0) pg MCHC 34.3 (32.0-36.0) g/dL RDW Std Deviation 42.9 (36.4-46.3) fL RDW Coeff of [place] 12.2 (11.5-14.5) % Plt Count 256 (130-400) K/uL MPV 11.2 (9.4-12.4) fL Immature Gran % (Auto) 0.4 % Neut % (Auto) 81.6 % Lymph % (Auto) 11.5 % [place] % (Auto) 6.4 % Eos % (Auto) 0.0 % Baso % (Auto) 0.1 % Neut # (Auto) 9.08 H (1.40-6.50) K/uL Lymph # (Auto) 1.28 (1.20-3.40) K/uL [place] # (Auto) 0.71 H (0.11-0.59) K/uL Eos # (Auto) 0.00 (0.00-0.50) K/uL Baso # (Auto) 0.01 (0.00-0.20) K/uL Immature Gran # (Auto) 0.04 (0.01-0.20) K/uL Sodium 135 L (136-145) mmol/L Potassium 4.7 (3.5-5.1) mmol/L Chloride 98 (98-107) mmol/L Carbon Dioxide 32 (21-32) mmol/L Anion Gap 5 (3-11) BUN 11 (6-23) mg/dl Creatinine 0.64 (0.6-1.2) mg/dl Est Cr Clr Drug Dosing 69.0 ml/min Est GFR ( Amer) 101.2 ml/min Est GFR (Non-Af Amer) 87.3 ml/min BUN/Creatinine Ratio 17.2 (10-20) Glucose 146 H (70-99(Fasting)) mg/dl POC Glucose 159 H 143 H (70-99) mg/dl Calcium 9.9 (8.6-10.3) mg/dl Magnesium 1.9 (1.7-2.4) mg/dl Vitamin B12 662 (180-914) pg/ml 25-OH Vitamin D Total 56.9 (30-100) ng/ml 01/28/24 01/28/24 01/28/24 Range/Units 23:59 21:00 16:47 WBC (4.8-10.8) K/ul RBC (4.20-5.40) M/uL Hgb (12.0-16.0) g/dl Hct (37.0-47.0) % MCV (80.0-100.0) fL MCH (25.0-34.0) pg MCHC (32.0-36.0) g/dL RDW Std Deviation (36.4-46.3) fL RDW Coeff of [place] (11.5-14.5) % Plt Count (130-400) K/uL MPV (9.4-12.4) fL Immature Gran % (Auto) % Neut % (Auto) % Lymph % (Auto) % [place] % (Auto) % Eos % (Auto) % Baso % (Auto) % Neut # (Auto) (1.40-6.50) K/uL Lymph # (Auto) (1.20-3.40) K/uL [place] # (Auto) (0.11-0.59) K/uL Eos # (Auto) (0.00-0.50) K/uL Baso # (Auto) (0.00-0.20) K/uL Immature Gran # (Auto) (0.01-0.20) K/uL Sodium (136-145) mmol/L Potassium (3.5-5.1) mmol/L Chloride (98-107) mmol/L Carbon Dioxide (21-32) mmol/L Anion Gap (3-11) BUN (6-23) mg/dl Creatinine (0.6-1.2) mg/dl Est Cr Clr Drug Dosing ml/min Est GFR ( Amer) ml/min Est GFR (Non-Af Amer) ml/min BUN/Creatinine Ratio (10-20) Glucose (70-99(Fasting)) mg/dl POC Glucose 164 H 157 H 176 H (70-99) mg/dl Calcium (8.6-10.3) mg/dl Magnesium (1.7-2.4) mg/dl Vitamin B12 (180-914) pg/ml 25-OH Vitamin D Total (30-100) ng/ml 01/28/24 01/28/24 01/28/24 Range/Units 13:17 11:22 10:56 WBC (4.8-10.8) K/ul RBC (4.20-5.40) M/uL Hgb (12.0-16.0) g/dl Hct (37.0-47.0) % MCV (80.0-100.0) fL MCH (25.0-34.0) pg MCHC (32.0-36.0) g/dL RDW Std Deviation (36.4-46.3) fL RDW Coeff of [place]her (11.5-14.5) % Plt Count (130-400) K/uL MPV (9.4-12.4) fL Immature Gran % (Auto) % Neut % (Auto) % Lymph % (Auto) % [place] % (Auto) % Eos % (Auto) % Baso % (Auto) % Neut # (Auto) (1.40-6.50) K/uL Lymph # (Auto) (1.20-3.40) K/uL [place] # (Auto) (0.11-0.59) K/uL Eos # (Auto) (0.00-0.50) K/uL Baso # (Auto) (0.00-0.20) K/uL Immature Gran # (Auto) (0.01-0.20) K/uL Sodium 137 (136-145) mmol/L Potassium 4.1 (3.5-5.1) mmol/L Chloride 103 (98-107) mmol/L Carbon Dioxide 27 (21-32) mmol/L Anion Gap 7 (3-11) BUN 12 (6-23) mg/dl Creatinine 0.72 (0.6-1.2) mg/dl Est Cr Clr Drug Dosing 61.3 ml/min Est GFR ( Amer) 94.9 ml/min Est GFR (Non-Af Amer) 81.9 ml/min BUN/Creatinine Ratio 16.7 (10-20) Glucose 219 H (70-99(Fasting)) mg/dl POC Glucose 203 H 168 H (70-99) mg/dl Calcium 9.1 (8.6-10.3) mg/dl Magnesium (1.7-2.4) mg/dl Vitamin B12 (180-914) pg/ml 25-OH Vitamin D Total (30-100) ng/ml PG Care Time/CCT Total # of Minutes Spent Total Time Spent with Patient: Total time spent is greater than 50% in coordination of care (as documented) at patient's floor/unit and/or counseling patient: Coding Level of Care Code 15434 SUB INP/OBS CARE 235MIN Diagnoses Spinal stenosis of cervical region with radiculopathy M48.02; M54.12 Diabetes mellitus, type 2 E11.9 Hypercalcemia E83.52 Primary biliary cirrhosis K74.3
[2024-01-29] MEDS: buPROPion SR 150 MG TABCR PO SCH (08:17)
--- NOTE | 2024-01-29 08:46 | Orthopedic Progress Note ---
Date of Service January 29, 2024 Subjective Patient seen and examined, she notes an improvement of her axial symptoms, and perhaps some improvement in her upper extremities. Decision site is unremarkable, no focal motor weakness. Impression/plan: Postoperative day 1 from two-level artificial disc replacement at C5-6 and C6-7. Will have the patient discharged today, she is tolerating a diet, she will follow-up roughly in 2 weeks, she is in agreement with this plan. Review of Systems All systems reviewed & are unremarkable except as noted in HPI & below. Physical Exam . Results & Data Results & Data Laboratory Results . Diagnostic Findings . PG Care Time/CCT Total # of Minutes Spent Total Time Spent with Patient: Total time spent is greater than 50% in coordination of care (as documented) at patient's floor/unit and/or counseling patient: Coding Level of Care Code 33835 Post Operative Follow-Up
--- NOTE | 2024-01-29 08:49 | Discharge Summary ---
Date of Service January 29, 2024 Admission HPI (Per Admitting) Cervical stenosis, cervical radiculopathy. Principal Diagnosis Same as "Discharge Diagnosis" noted below under Discharge Instructions. Discharge Exam . Discharge Data Consultations 01/28/24 10:49 Consult Hospitalist Routine Procedures Performed Operation Date: 01/28/24 07:15 Actual Procedures p C5-C6, C6-C7 Cervical Artificial Disc Arthroplasty(Not Applicable) - Mark Anthony Crain MD Ordered Studies 01/28/24 07:15 FL cervical 2-3V Routine Hospital Course (1) Spinal stenosis of cervical region with radiculopathy: PG Care Time/CCT Total # of Minutes Spent Total Time Spent with Patient: Total time spent is greater than 50% in coordination of care (as documented) at patient's floor/unit and/or counseling patient: Discharge Plan Discharge Items Patient Disposition: Home - Self-Care Reason For Visit: Cervical Stricture or Stenosis, Degenerative Cervi Discharge Diagnosis: Cervical stenosis with cervical radiculopathy. Activity: As commented below Lifting: No more than 10 pounds Bathing: May shower/bathe in 3 days Exercise/Sports: Wait until after follow-up appointment Driving/Machine Use: Resume 3 days after discharge Non-emergency contact: Surgeon Call non-emergency contact if: your pain is worsening Follow-up/Referrals: Pro,Nathanael Wise MD [Primary Care Provider] - Diet: Regular Addtl Attending Provider Instructions: Patient declined from any narcotic prescriptions, she will take either acetaminophen or ibuprofen [id number] for postoperative symptoms. I advised her on activity, no orthosis needed, follow-up in 2 weeks. Pending Studies at Discharge: No Stand-Alone Forms: [facility], Smoking Cessation Medications and DC Order Prescriptions: No Action triamcinolone acetonide 0.1 % cream 1 applic TOP BID Qty: 453.6 3RF Rx Instructions: apply to ears levothyroxine 88 mcg tablet 88 mcg PO QAM Qty: 90 1RF aspirin 81 mg tablet 81 mg PO QAM meloxicam 7.5 mg tablet 7.5 - 15 mg PO DAILY MDD 2 pills Qty: 30 1RF Rx Instructions: With meals if possible. mupirocin 2 % ointment 1 applic topical BID Qty: 15 0RF ascorbic acid (vitamin C) [Vitamin C] 1,000 mg Tablet 1 g PO QAM calcium carbonate [Calcium 500] 500 mg calcium (1,250 mg) Tablet 500 mg PO QAM cranberry 500 mg Capsule 500 mg PO BID Rx Instructions: administer with meals Probiotic 1 cap PO DAILY bupropion HCl [Wellbutrin SR] 150 mg tablet sustained-release 12 hr 150 mg PO QAM ursodiol 300 mg capsule 600 mg PO BID Rx Instructions: take 2 capsules by mouth twice a day escitalopram oxalate [Lexapro] 10 mg tablet 10 mg PO QAM Mounjaro 2.5 mg/0.5 mL pen injector 2.5 mg subcut Q7D Patient Comments: mondays Rx Instructions: weeks 1-4 atorvastatin [Lipitor] 20 mg tablet 20 mg PO QPM methenamine hippurate [Hiprex] 1 gram tablet 1 g PO BID Discharge Orders: Discharge Order (Routine); Ordered 01/29/24 Ordered By: Mark Anthony Crain Admission Data Admit Date/Time: 01/28/24 10:49 Attending Provider: Mark Anthony Crain Admit Provider: Mark Anthony Crain Primary Care Provider: Nathanael Dumont Other Providers: Sam Delcid; Sammy Stewart; Moises Becker; Reddy Zhu; Luis M Baez; Darcy Mac; Judi Valentine; Marilou Duffy Alicia D.; Vasu Castaneda; Braeden Thomason; Leonie Barkley; Prasanna Still; Sammy Lau; Christofer Carlson; Zuly Agustin; Bryanna Carroll; Bryanna Garvin; Grazyna Kelly; Nancy Murray; Ria Crawford; Steffen Hughes; Isa Monzon; Shahid Dodge; Alex Lawson [place] N.; Melissa Bang; Didi Burks; Santos Reis; Rigo Hanley; Moises Barillas; Reddy Cleveland; Mima Goldsmith; Silvana Swan; Deisy Swanson; Romain Muse
[2024-01-29] MEDS: ESCITALOPRAM OXALATE 10 MG TAB PO SCH (09:01)
--- NOTE | 2024-01-29 09:34 | Operative Report ---
PG Post Operative Report Pre & Post Diagnosis Operation Date: 01/28/24 07:15 Pre-Op Diagnosis: Cervical Stenosis with Radiculopathy Post-Op Diagnosis: Cervical Stenosis with Radiculopathy I identified the patient and participated in the time-out.: Yes Procedure Operation Date: 01/28/24 07:15 Actual Procedures p C5-C6, C6-C7 Cervical Artificial Disc Arthroplasty(Not Applicable) - Mark Anthony Crain MD Surgeon Mark Anthony Crain MD Rub[employer] none Estimated Blood Loss 5 Findings Consistent with Post-Op Diagnosis Specimens None Description of Procedure 1. C5-6 anterior decompression and artificial disc replacement. Mobi-C 15 x 17 x 4.5 mm. (70680) 2. C6-7 anterior decompression and artificial disc replacement. Mobi-C 15 x 17 x 4.5 mm. ([id number]) Patient was taken operating room and after adequate anesthesia was carefully positioned supine on the OSI flattop table. After a preprepped, the patient was carefully positioned on the table for the anterior approach to the C5-6 and C6-7 levels, fluoroscopy was brought in I marked for the approximate location of the incision. Prep and drape was completed, I began with a left-sided approach transverse incision and from here I advanced down in standard fashion to the medial border of the sternocleidomastoid and to the anterior aspect of the cervical spine. Once confirmed, I then mobilized the soft tissues away from the anterior aspect of the disc bases at C5-6 and C6-7, I then used fluoroscopy to place the distractor pins at C6 and C7. Retractors were then set, I then moved ahead with incising the anterior annulus and then from there mobilizing the degenerative disc at this level. Care was taken to carefully elevate this and once elevated to the proper level, continued with the thorough discectomy and removal of cartilage from the endplates. Bur was then used to remove the overhanging spondylosis across the interspace posteriorly followed by combinati on curettes and Kerrison punches to complete the decompression at the interspace across out to the uncinates on both sides. With this now completed I then went through trials selecting the size artificial disc replacement and this was inserted under fluoroscopic control with excellent placement. With this level completed, the distractor pin was removed to C7 advanced up to the C5 level, combination of Floseal and bone wax was applied to the insertion point. The C5 distractor pin was placed under fluoroscopic control, and then the retractors were reset. Anterior annulotomy was performed, I then in a similar fashion remove the disc material and elevated the disc space to its proper height. The decompression was performed across the interspace to the dura and completed out to the uncinates on both sides. Once completed, I then selected trials once again and selected the same size artificial disc replacement which was then inserted under fluoroscopic control. Final images were obtained revealing excellent placement of the devices, the distractor pins were removed and Floseal and bone wax was applied. Final inspection revealed no issues, I then placed antibiotic powder and then closed the operative site with 3-0 Vicryl sutures followed by benzoin and Steri-Strips. Patient tolerated procedure well was taken recovery room satisfactory condition. I attest to the content of the Intraoperative Record and any orders documented therein. Any exceptions are noted below.
[2024-01-29] MEDS: DICLOFENAC SOD 1% GEL 100 GM TUBE EXT SCH (09:46)
[2024-01-29 09:56] VITALS: TEMP 97.7
[2024-01-29] MEDS ORDERED: hydrALAZINE HCL 20 MG/ML VIAL IV PRN (10:15)
[2024-01-29] MEDS: ONDANSETRON INJ 2 MG/ML 2 ML VIAL IV PRN (10:19)
[2024-01-29 10:57] VITALS: BP 161/84; PULSE 61; RESP 17; O2SAT 98
== END 2024-01-29 12:00 | disposition home or self-care (01) ==
LOC: ASU 05:41 → 3E 05:41

== ENCOUNTER 2024-06-02 05:37 | Inpatient (IN) ==
--- NOTE | 2024-05-07 10:20 | PAT Medication Instructions ---
Medication Instructions Date of Service May 07, 2024 Home Medications Medication Instructions Recorded levothyroxine 88 mcg tablet 88 mcg PO QAM #90 tabs 11/25/23 atorvastatin 20 mg tablet (Lipitor) 20 mg PO QPM #90 tabs 02/13/24 methenamine hippurate 1 gram 1 g PO BID #180 tabs 03/17/24 tablet (Hiprex) ascorbic acid (vitamin C) 1,000 mg tablet (Vitamin C) 1 g PO QAM levothyroxine 88 mcg tablet 88 mcg PO QAM Probiotic 1 cap PO DAILY bupropion HCl 150 mg tablet,12 hr sustained-release (Wellbutrin SR) 150 mg PO QAM cranberry 500 mg capsule 500 mg PO BID escitalopram oxalate 10 mg tablet (Lexapro) 10 mg PO QAM ursodiol 300 mg capsule 600 mg PO BID atorvastatin 20 mg tablet (Lipitor) 20 mg PO QPM methenamine hippurate 1 gram tablet (Hiprex) 1 g PO BID aspirin 81 mg capsule 81 mg PO QAM calcium carbonate (Calcium 600) 600 mg PO QAM cholecalciferol (vitamin D3) 25 mcg (1,000 unit) tablet (Vitamin D3) 25 mcg PO QAM dulaglutide 0.75 mg/0.5 mL subcutaneous pen injector (Trulicity) 0.75 mg subcut Q7D meloxicam 7.5 mg tablet 7.5 - 15 mg PO DAILY mupirocin 2 % topical ointment 1 applic topical BID PRN triamcinolone acetonide 0.1 % topical cream 1 applic topical BID PRN zinc 50 mg tablet 50 mg PO QAM STOP 7 days before surgery dulaglutide 0.75 mg/0.5 mL subcutaneous pen injector (Trulicity) 0.75 mg subcut Q7D ASK your surgeon for instructions meloxicam 7.5 mg tablet 7.5 - 15 mg PO DAILY ASK your prescriber and surgeon aspirin 81 mg capsule 81 mg PO QAM STOP taking 24 hours before surgery mupirocin 2 % topical ointment 1 applic topical BID PRN triamcinolone acetonide 0.1 % topical cream 1 applic topical BID PRN DO NOT take the morning of surgery ascorbic acid (vitamin C) 1,000 mg tablet (Vitamin C) 1 g PO QAM Probiotic 1 cap PO DAILY cranberry 500 mg capsule 500 mg PO BID calcium carbonate (Calcium 600) 600 mg PO QAM cholecalciferol (vitamin D3) 25 mcg (1,000 unit) tablet (Vitamin D3) 25 mcg PO QAM zinc 50 mg tablet 50 mg PO QAM Take morning of surgery With a small sip of water, OTHERWISE NOTHING TO EAT OR DRINK AFTER MIDNIGHT: levothyroxine 88 mcg tablet 88 mcg PO QAM bupropion HCl 150 mg tablet,12 hr sustained-release (Wellbutrin SR) 150 mg PO QAM escitalopram oxalate 10 mg tablet (Lexapro) 10 mg PO QAM methenamine hippurate 1 gram tablet (Hiprex) 1 g PO BID ursodiol 300 mg capsule 600 mg PO BID Take evening before surgery cranberry 500 mg capsule 500 mg PO BID atorvastatin 20 mg tablet (Lipitor) 20 mg PO QPM methenamine hippurate 1 gram tablet (Hiprex) 1 g PO BID ursodiol 300 mg capsule 600 mg PO BID Other Notes If you have any questions please call us at [phone] or [phone] or [phone] or [phone]
--- NOTE | 2024-05-13 12:32 | Anesthesiology Consultation ---
Date of Service May 13, 2024 Assessment & Plan (1) Encounter for pre-operative examination: - Check BSG DOS - Infectious disease screening: Per assessment on 05/13/24- No known recent infectious disease contacts or current infectious disease symptoms. - Cardiology visit (01/23/24): "73-year-old female with a past medical history significant for type 2 diabetes, tobacco abuse, dyslipidemia, hypothyroidism, peripheral neuropathy, primary biliary cholangitis, and spinal stenosis who presents to the clinic for a pre-operative cardiovascular evaluation prior to C5-C6, C6-C7 Cervical Artificial Disc Arthroplasty on 01/28/[address] Crain. She is currently stable and asymptomatic from a cardiovascular standpoint with no anginal symptoms occurring at >4 METS of activity. She has no evidence of CHF or significant valvular abnormality. Preop EKG did show nonspecific ST-T wave abnormality, which was new compared to prior EKGs. Will therefore perform a limited echo today to further evaluate LV wall motion and systolic function. Pending the results of the echo, patient is at an acceptable risk to proceed with surgery from a cardiovascular standpoint. Follow-up as needed, pending echo results." > Echo done 01/23/24: EF 65-70%. LV wall motion normal. Moderate cLVH. Mild RVD. No significant valvular disease. - S/P C5-C7 cervical artificial disc arthroplasty (01/28/24): Grade 2 view, Glidescope#3, ETT 7.0 at [facility] - Trulicity/Dulaglutide instructions: Patient informed by PAT to stop 7 days prior to surgery- voiced understanding. DOS 06/02/24. Advised last dose to be 05/25/24. Chart Review Chart Review: Acceptable Risk for Surgery and Patient seen in Pre Admission Testing Teaching & Discussion Pre-Anesthesia Teaching/Discussion Notes: Instructed NPO after midnight before surgery,except medications with 15 cc of water. Medication instructions provided according to the PAT guidelines. History Surgery Operation Date: 06/02/24 07:15 Proposed Procedures p L3-L4, L4-L5 Posterior Laminectomy and Fusion, L3-L4 Lateral Interbody Fusion and Cage Placement, L3,L4,L5 Posterior Instrumentation 3-6 Levels, with Spinal Cord Monitoring - Mark Anthony rCain MD Height/Weight Height: 5 ft 1 in Weight: 69.4 kg Allergies Allergy/AdvReac Type Severity Reaction Status Date / Time doxycycline Allergy Severe Tongue Verified 05/07/24 09:06 swelling metformin Allergy Intermediate GI Upset Verified 05/07/24 09:06 sulfamethoxazole Allergy Intermediate Hives Verified 05/07/24 09:06 [From Bactrim] trimethoprim [From Bactrim] Allergy Intermediate Hives Verified 05/07/24 09:06 propranolol [From Inderal LA] Allergy Unknown Unknown Verified 05/07/24 09:06 codeine AdvReac Intermediate GI upset Verified 05/07/24 09:06 erythromycin base AdvReac Intermediate GI upset Verified 05/07/24 09:06 Medications Home Medications Medication Instructions Recorded Confirmed Last Taken ascorbic acid (vitamin C) 1,000 mg 1 g PO QAM 01/05/19 05/07/24 01/27/24 10:00 tablet (Vitamin C) levothyroxine 88 mcg tablet 88 mcg PO QAM #90 tabs 11/25/23 05/07/24 01/27/24 09:00 Probiotic 1 cap PO DAILY 01/03/24 05/07/24 01/27/24 10:00 bupropion HCl 150 mg tablet,12 hr 150 mg PO QAM 01/03/24 05/07/24 01/27/24 10:00 sustained-release (Wellbutrin SR) cranberry 500 mg capsule 500 mg PO BID 01/03/24 05/07/24 01/27/24 18:00 escitalopram oxalate 10 mg tablet 10 mg PO QAM 01/03/24 05/07/24 01/27/24 10:00 (Lexapro) ursodiol 300 mg capsule 600 mg PO BID 01/03/24 05/07/24 01/27/24 21:00 atorvastatin 20 mg tablet (Lipitor) 20 mg PO QPM #90 tabs 02/13/24 05/07/24 Unknown methenamine hippurate 1 gram 1 g PO BID #180 tabs 03/17/24 05/07/24 Unknown tablet (Hiprex) aspirin 81 mg capsule 81 mg PO QAM 05/07/24 05/07/24 Unknown calcium carbonate (Calcium 600) 600 mg PO QAM 05/07/24 05/07/24 Unknown cholecalciferol (vitamin D3) 25 25 mcg PO QAM 05/07/24 05/07/24 Unknown mcg (1,000 unit) tablet (Vitamin D3) dulaglutide 0.75 mg/0.5 mL 0.75 mg subcut Q7D 05/07/24 05/07/24 Unknown subcutaneous pen injector (Trulicity) meloxicam 7.5 mg tablet 7.5 - 15 mg PO DAILY Pain 05/07/24 05/07/24 Unknown mupirocin 2 % topical ointment 1 applic topical BID PRN ear 05/07/24 05/07/24 Unknown irritation triamcinolone acetonide 0.1 % 1 applic topical BID PRN Skin 05/07/24 05/07/24 Unknown topical cream Irritation zinc 50 mg tablet 50 mg PO QAM 05/07/24 05/07/24 Unknown Past Medical History Medical History (Updated 05/13/24 @ 12:57 by Haritha Candelaria) Adjustment disorder with anxiety Asthma No current issues/no current inhaler Degenerative spondylolisthesis Depression Diabetes mellitus, type 2 NIDDM Diabetic peripheral neuropathy associated with type 2 diabetes mellitus Dyslipidemia Frequent UTI No current issues History of colon polyps History of COVID-19 07/2021: headache,"cold like symtoms" > resolved end 01/2024: no residual symptoms History of cystocele History of migraine History of renal calculi Hx of benign essential tremor Tremor "resolved" after [facility] focus ultrasound Hx of blood clots Right optic nerve clot ~2019, 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 Hypothyroidism IBS (irritable bowel syndrome) Memory loss or impairment Osteoarthritis Osteopenia Overactive bladder Rosacea Scoliosis Per records Stenosis, spinal, lumbar Unsteady gait Urge incontinence of urine Exercise / Class Metabolic Activity II 4-5 Yardwork/Stairs/Walk up hill (one FS: No CP, no SOB) Past Family History Family History Mother Breast cancer Brother Hypertension Daughter Family history of reaction to anesthesia "she gets mean" Grandmother (Paternal) Family history of diabetes mellitus Diabetes Myocardial infarction Uncle Esophageal cancer Sister Hypertension Aunt Ovarian cancer Denies family history of Prostate cancer Past Surgical History Surgical History History of blepharoplasty History of colonoscopy History of esophagogastroduodenoscopy (EGD) History of knee replacement Left History of partial hysterectomy History of rhytidectomy Hx of cervical spine surgery C5-C7 cervical artificial disc arthroplasty (01/28/24): Grade 2 view, Glidescope#3, ETT 7.0 at [facility] Nausea and vomiting after administration of anesthetic agent S/P implantation of urinary electronic stimulator device Removed Past Anesthesia History Difficult Airway (C5-C7 cervical artificial disc arthroplasty (01/28/24): Grade 2 view, Glidescope#3, ETT 7.0 at [facility]), No Family Hx of Anesthesia Complications (except daughter "gets mean" per records) and Other (Post-op grogginess) History of PONV History of PONV and Hx of Motion Sickness Social History Smoking Status: Current every day smoker tobacco type: cigarettes Smoking cigarettes per day: 10 cigs/day (trying to decrease) Do You Dip or Chew Tobacco: No Hx Alcohol Use: Yes Alcohol type: wine alcohol intake frequency: holidays/special occasions only Hx Substance Use: No substance use type: does not use Review of Systems Patient denies chest pain, shortness of breath, dyspnea on exertion, fever, chills, cough, wheezing, palpitations. Physical Exam Vital Signs BP 126/84 P 75 TEMP 97.4 SP02 95%RA RESP 18 Physical Full cervical extension range of motion. Full TMJ range of motion. TMD 3 finger breaths Mallampati Score III Dentition: intact, implants (several) Lungs: clear throughout to auscultation Cardiac: regular rate and rhythm, no murmurs noted Spine: normal Carotid arteries: negative bruit Extremities: no LE edema Lab Results Anesthesia Preop Results Results Anesthesia Widget: WBC 7.17 K/ul (4.8-10.8) 05/13/24 Hgb 15.7 g/dl (12.0-16.0) 05/13/24 Hct 46.4 % (37.0-47.0) 05/13/24 Plt 286 K/uL (130-400) 05/13/24 Na 140 mmol/L (136-145) 05/13/24 K 4.0 mmol/L (3.5-5.1) 05/13/24 Cl 102 mmol/L (98-107) 05/13/24 CO2 32 mmol/L (21-32) 05/13/24 BUN 15 mg/dl (6-23) 05/13/24 Creat 0.69 mg/dl (0.6-1.2) 05/13/24 Glucose Level 99 mg/dl (70-99(Fasting)) 05/13/24 PT 10.8 Seconds (9.0-12.0) 05/13/24 PTT 27 Seconds (21-31) 05/13/24 INR 1.0 (0.9-1.1) 05/13/24 Blood Type O Negative 05/13/24 Antibody Screen NEGATIVE 05/13/24 Testing Laboratory Results HGBA1C (02/13/24): 7.0% Electrocardiogram Date: 01/08/24 SB with sinus arrhythmia at 55bpm. LAFB. ST/TWA, consider lateral ischemia. Chest X-Ray Date: 01/08/24 FINDINGS: The lungs are clear. Cardiac silhouette is normal in size. No pleural effusions. No pneumothorax. Mild S-shaped scoliosis of the thoracolumbar spine again noted. No acute fractures. IMPRESSION: No acute process. Echocardiogram Date: 01/23/24 EF 65-70%. LV wall motion normal. Moderate cLVH. Mild RVD. No significant valvular disease.
--- OUTSIDE RECORDS SUMMARY | 2024-06-02 05:41 | External Medical Summary | Summary of Care ---
Author Name Unknown Organization [facility] Address [address] [place] [address] Phone [phone] Care Team Providers Care Armhole Raiser Lockstitch Name Role Phone Nathanael Dumont MD Primary Care Provider +1- [phone] Reason for Visit * Reason Comments Follow Up * Precert (Within 10 days (routine)) - Authorized Specialty Diagnoses / Procedures Referred By Haroldo tinsley Referred To Contact Ophthalmology Diagnoses Other dystrophies primarily involving the sensory retina Procedures [place] TRIAMCINOLONE A INJ PRS-FREE Prasanna Andrade DO [address] [place] [address] Phone: tel: fax: Ophthalmology, [facility] [address] [facility] [place] [address] Phone: tel: fax: Referral ID Status Reason Start Date Expiration Date V isits Requested Visits Authorized [id number] Authorized Precert 10/04/2022 05/26/2099 [id number] Encounter Details Date Type Department Care Team (Late st Contact Info) Description 06/01/2024 9:00 AM EST Office Visit Ophthalmology, [facility] [address] [place] [address] Prasanna Andrade DO [address] [place] [address] Macular edema, cystoid, bilateral* Allergies Active Allergy Reactions Criticality Noted Date Comments Sulfamethoxazole-Trimet hoprim Itching,Rash 08/20/2018 Codeine 2021 Other reaction(s): GI upset Doxycycline Monohydrate Hives 08/20/2018 Erythromycin Base 2021 Other reaction(s): GI upset Propranolol 08/20/2018 Muscle weakness /dizzness Metformin Diarrhea,Nausea/vomi ting 08/20/2018 Misc. Sulfonamide Containing Compounds Hives 08/29/2022 Other reaction(s): Hives Sulfa Antibiotics Itching,Rash 08/20/2018 Trimethoprim 2021 Other reaction(s): Hives documented as of this encounter (statuses as of 06/01/2024) Medications atorvaSTATin (LIPITOR) 20 MG Tablet Take 1 Tablet by mouth at bedtime. 07/24/19 Active levothyroxine (LEVOXYL) 88 MCG Tablet Take 1 Tablet by mouth daily first thing in the morning. 08/15/19 Active ursodiol (ACTIGALL) 300 MG Capsule Take 2 Capsules by mouth in the morning and 2 Capsules before bedtime. 06/30/19 Active trimethoprim (PROLOPRIM) 100 MG Tablet at bedtime. 07/26/19 Active Methenamine Hippurate 1 g TABS Take 1 Tablet by mouth in the morning and 1 Tablet before bedtime. 09/24/19 Active Ascorbic Acid (VITAMIN C) 1000 MG Tablet Take 1 Tablet by mouth in the morning. Active Lactobacillus (PROBIOTIC ACIDOPHILUS) TABS Take 1 Tab by mouth daily. Active Aspirin 81 MG Oral Tablet Delayed Release Take 1 Tablet by mouth in the morning. Active Calcium Carbonate-Vitami n D 500-5 MG-MCG Oral Tablet Take 1 Tablet by mouth in the morning. Active Azelastine HCl 137 MCG/SPRAY SOLN as needed. 03/18/20 Active metoprolol succinate XL (TOPROL XL) 25 MG TB24 Take 1 Tablet by mouth in the morning. 03/10/20 Active Biotin 36593 MCG TABS Take 1 Tab by mouth daily. Active Escitalopram Oxalate 20 MG Oral Tablet (Lexapro) Take 10 mg by mouth in the morning. 02/16/20 Active Cranberry Fruit 465 MG Oral Capsule Take 1 Cap by mouth 2 times a day. Active buPROPion HCl ER (SR) 150 MG Oral Tablet Extended Release 12 Hour (Wellbutrin SR) Take 1 Tablet by mouth in the morning. 03/01/20 22 Active Methocarbamol 500 MG Oral Tablet (Robamol) Take 1 Tablet by mouth in the morning and 1 Tablet in the evening. 04/09/20 22 Active Escitalopram Oxalate 10 MG Oral Tablet (Lexapro) Take 1 Tablet by mouth in the morning. 08/20/19 23 Active Trulicity 0.75 MG/0.5ML Subcutaneous Solution Pen-injector INJECT 1 SYRINGE SUBCUTANEOUSLY ONCE A WEEK 02/20/20 24 Active Hospital, Clinic, or Other Facility Administered Medication Ordered Dose Route Frequency Start Date End Date Status Triamcinolone Acetonide (Triesence) ophth inj 40 mgIndications:Macular edema, cystoid, bilateral 40 mg IZ PRN 12/26/2023 12/25/2024 Active ROPivacaine (Naropin) inj 1.75 mgIndications:Macular edema, cystoid, bilateral 1.75 mg IJ [id number] 06/01/2024 06/28/2025 Active documented as of this encounter (statuses as of 06/01/2024) Active Problems No known active problems documented as of this encounter (statuses as of 06/01/2024) Immunizations Name Administration Dates Next Due Pneumococcal Conjugate Vacc, 13 Valent (Prevnar) 04/12/2015 Pneumococcal Polysaccharide PPV23 (Pneumovax) 07/31/2019 Season Influenza, Quad, PF, Adjuvanted, 65+ Yrs, IM (FLUAD) 02/16/2021,03/09/2020 Seasonal Influenza Virus Vac cine, Unspecified Formulation 04/02/2018,03/13/2017,03/09/2016,02/21 TDAP, Age 7 and older, IM (Adacel) 07/28/2015 documented as of this encounter Social History Tobacco Use Types Packs/Day Years Used Date Smoking Tobacco: Every Day Cigarettes Smokeless Tobacco: Never Alcohol Use Standard Drinks/Week Comments Yes 1 (1 standard drink = 0.6 oz pure alcohol) a glass of wine three times a week Comments No Sex and Gender Information Value Date Recorded Sex Assigned at Not on file Legal Sex Female 5:56 AM EST Gender Identity Not on file Sexual Orientation Not on file documented as of this encounter Progress Notes * Prasanna Andrade DO - 06/01/2024 9:00 AM EST TIMEOUT PROCEDURE: correct patient identity-YES correct procedure and consent-YES verified side and site-YES correct patient position-YES all necessary equipment/prior studies present-YES reviewed special requirements of this patient-YES PROCEDURE: Intravitreal injection of triamcinolone (preservative free) 2mg, OD. DIAGNOSIS: Macular edema. COMPLICATIONS: None. ANESTHESIA: Local. INDICATIONS FOR PROCEDURE: Decrease risk of vision loss. CONSENT: Risk and benefits and alternatives were discussed with the patient including but not limited to decreased visual acuity, inflammation, infection, pain, glaucoma, retinal tears, hemorrhage, retinal detachments, loss of the eye, cataract, and the need for more procedures. Patient is aware of these risks and consents to the procedure. DESCRIPTION OF PROCEDURE: Informed written consent was obtained from the patient and the surgical site was confirmed. Topicalproparacaine was applied to the surface of the eye after which subconjunctival anesthetic was administered. The area was prepped in the usual standard manner with 5% Betadine solution. An eyelid speculum was placed and 0.05 ml of a 40mg/ml solution of preservative free triamcinolone was injected 3.75 mm posterior to the limbus into the midvitreous cavity with a 30 gauge short needle. The eye speculum was removed, Betadine was washed from the surface of the eye. Optic nerve perfusion was checkedby visual acuity of at least count fingers. The patient tolerated the procedure without difficulty, and was given followup instructions and ophthalmic oint to use 3x/day for 3 days prn. Christopher T Cessna, DO, performed the procedure in its entirety. documented in this encounter Nursing Notes * Sherry Moyer LPN - 06/01/2024 9:29 AM EST Roselia Aragon to receive fourth Posterior SubTenon's Triesence 40mg Injection of the Right eye. Correct eye confirmed with patient and marked by Prasanna Andrade DO Posterior SubTenon's Triesence 40mg lot # [id number] Exp. Date: 06/16/2024 * Sherry Moyer LPN - 06/01/2024 9:00 AM EST Roselia Aragon is a 73 year old year old female who presents for macular edema OU. Last Office Visit: 05/12/2024 (in office), Visit date not found (telemedicine) Patient currently c/o having more floaters Are you diabetic? Yes. Do you check your blood sugars daily? NO. Last Hemoglobin A1C: No results found for: "HGBA1C" Do you drive? yes OCT image(s) of both eyes acquired and filed/scanned into chart. documented in this encounter Plan of Treatment Scheduled Orders Name Type Priority Associated Diagnoses Orde r Schedule RETINA SCAN DIAGNOSTIC IMAGE, POSTERIOR Procedures Routine Macular edema, cystoid, bilateral Ordered: 06/01/2024 Health Maintenance Due Date Last Done Comments DXA Scan 1948 Depression Screening 1960 Hepatitis C Screening 1966 TSH 1966 Zoster Vaccines (1 of 2) 1998 COVID-19 Vaccine ( season) 2024 04/02/2022, 03/15/2021, 08/13/2020, Additional history exists Influenza Vaccine (FLU shot) (#1) 2024 02/16/2021, 03/09/2020, 03/02/2019, Additional history exists DTap/Tdap Vaccines (2 - Td or Tdap) 07/27/2025 07/28/2015 Pneumococcal Vaccine: 50+ Years Completed 07/31/2019, 04/12/2015 HPV (Gardasil) Vaccine Aged Out No lo nger eligible based on patient's age to complete this topic Hepatitis B Vaccine Aged Out No longe r eligible based on patient's age to complete this topic MENINGOCOCCAL (MENACTRA/MENVEO) Aged Out No longer eligible based on patient's age to complete this topic documented as of this encounter Medical Devices Implanted Type Area Adobe Maker Device Identifier Shelf Expiration Date Model / Serial / Lot [id number] Iol Implanted:Qty: 1 on 06/30/2019 by Johnathon Storey MD at OR [facility] Left: Eye 02/23/2022 [id number] / [id number] / [id number] Implanted:Qty: 1 on 07/07/2019 by Johnathon Storey MD at OR [facility] Right: Eye 08/24/2021 MX60T 2.00 / [id number] / [id number] documented as of this encounter Visit Diagnoses Diagnosis Macular edema, cystoid, bilateral- Primary documented in this encounter Administered Medications Active Administered Medications - up to 3 most recent administrations Medication Order MAR Action Action Date Dose Rate Site ROPivacaine (Naropin) inj 1.75 mg 1.75 mg (0.35 mL), Injection, [id number], First dose on Sat06/01/24 at 1015, Last dose on Sat05/31/25 at 1015, For 365 daysIndications:Macular edema, cystoid, bilateral Given 06/01/2024 9:38 AM EST 1.75 mg Eye Right Triamcinolone Acetonide (Triesence) ophth inj 40 mg 40 mg, Intravitreal, PRN Other, Starting on Indira 12/26/23 at 1017, Until Sat12/25/24 at 1016, For 365 days, Left EyeIndications:Macular edema, cystoid, bilateral Given 06/01/2024 9:33 AM EST 40 mg Eye Right Given 05/12/2024 2:27 PM EST 40 mg Ey e Left Given 01/10/2024 8:45 AM EDT 40 mg Ey e Left documented in this encounter Care Teams Armhole Raiser Lockstitch Relationship Specialty Start Date End Date Pro, Nathanael Pitts MD [address] [place] [address] PCP - General Internal Medicine 08/20/18 documented as of this encounter
--- OUTSIDE RECORDS SUMMARY | 2024-06-02 05:41 | External Medical Summary | Summary of Care ---
Author Name Unknown Organization [facility] Address [address] [place] [address] Phone [phone] Care Team Providers Care Counter Clerk Name Role Phone Nathanael Dumont MD Primary Care Provider [phone]- [phone] Reason for Visit * Reason Comments Follow Up * Precert (Within 10 days (routine)) - Authorized Specialty Diagnoses / Procedures Referred By Haroldo tinsley Referred To Contact Ophthalmology Diagnoses Other dystrophies primarily involving the sensory retina Procedures [place] TRIAMCINOLONE A INJ PRS-FREE Prasanna Andrade DO [address] [place] [address] Phone: tel: fax: Ophthalmology, [facility] [address] [facility] [place] [address] Phone: tel: fax: Referral ID Status Reason Start Date Expiration Date V isits Requested Visits Authorized [id number] Authorized Precert 10/04/2022 05/26/2099 [id number] Encounter Details Date Type Department Care Team (Late st Contact Info) Description 06/01/2024 9:00 AM EST Office Visit Ophthalmology, [facility] [address] [place] [address] Prasanna Andrade DO [address] [place] [address] Macular edema, cystoid, bilateral* Allergies Active Allergy [...] mouth in the morning. 03/10/20 Active Biotin 15924 MCG TABS Take 1 Tab by mouth [...] mgIndications:Macular edema, cystoid, bilateral 1.75 mg IJ [id number] 06/01/2024 06/28/2025 Active documented as of this [...] DO Posterior SubTenon's Triesence 40mg lot # [id number] Exp. Date: 06/16/2024 * Sherry Moyer LPN [...] this encounter Medical Devices Implanted Type Area Sql Database Administrator Device Identifier Shelf Expiration Date Model / Serial / Lot [id number] Iol Implanted:Qty: 1 on 06/30/2019 by Johnathon Storey MD at OR [facility] Left: Eye 02/23/2022 [id number] / [id number] / [id number] Implanted:Qty: 1 on 07/07/2019 by Johnathon Storey MD at OR [facility] Right: Eye 08/24/2021 MX60T 2.00 / [id number] / [id number] documented as of this encounter Visit Diagnoses Diagnosis Macular edema, cystoid, bilateral- Primary documented in this encounter Administered Medications Active Administered Medications - up to 3 most recent administrations Medication Order MAR Action Action Date Dose Rate Site ROPivacaine (Naropin) inj 1.75 mg 1.75 mg (0.35 mL), Injection, [id number], First dose on Sat06/01/24 at 1015, Last [...] Left documented in this encounter Care Teams Counter Clerk Relationship Specialty Start Date End Date Pro, Nathanael Pitts MD [address] [place] [address] PCP - General Internal Medicine 08/20/18 documented as of this encounter
--- OUTSIDE RECORDS SUMMARY | 2024-06-02 05:41 | External Medical Summary | Summary of Care ---
Author Name Unknown Organization [facility] Address [address] [place] [address] Phone [phone] Care Team Providers Care Supervisor Toy Assembly Name Role Phone Nathanael Dumont MD Primary Care Provider [phone]- [phone] Reason for Visit * Reason Comments Follow Up * Precert (Within 10 days (routine)) - Authorized Specialty Diagnoses / Procedures Referred By Haroldo tinsley Referred To Contact Ophthalmology Diagnoses Other dystrophies primarily involving the sensory retina Procedures [place] TRIAMCINOLONE A INJ PRS-FREE Prasanna Andrade DO [address] [place] [address] Phone: tel: fax: Ophthalmology, [facility] [address] [facility] [place] [address] Phone: tel: fax: Referral ID Status Reason Start Date Expiration Date V isits Requested Visits Authorized [id number] Authorized Precert 10/04/2022 05/26/2099 [id number] Encounter Details Date Type Department Care Team (Late st Contact Info) Description 06/01/2024 9:00 AM EST Office Visit Ophthalmology, [facility] [address] [place] [address] Prasanna Andrade DO [address] [place] [address] Macular edema, cystoid, bilateral* Allergies Active Allergy [...] mouth in the morning. 03/10/20 Active Biotin 49119 MCG TABS Take 1 Tab by mouth [...] mgIndications:Macular edema, cystoid, bilateral 1.75 mg IJ [id number] 06/01/2024 06/28/2025 Active documented as of this [...] DO Posterior SubTenon's Triesence 40mg lot # [id number] Exp. Date: 06/16/2024 * Sherry Moyer LPN [...] this encounter Medical Devices Implanted Type Area Signal Constructor Device Identifier Shelf Expiration Date Model / Serial / Lot [id number] Iol Implanted:Qty: 1 on 06/30/2019 by Johnathon Storey MD at OR [facility] Left: Eye 02/23/2022 [id number] / [id number] / [id number] Implanted:Qty: 1 on 07/07/2019 by Johnathon Storey MD at OR [facility] Right: Eye 08/24/2021 MX60T 2.00 / [id number] / [id number] documented as of this encounter Visit Diagnoses Diagnosis Macular edema, cystoid, bilateral- Primary documented in this encounter Administered Medications Active Administered Medications - up to 3 most recent administrations Medication Order MAR Action Action Date Dose Rate Site Triamcinolone Acetonide (Triesence) ophth inj 40 mg 40 mg, Intravitreal, PRN Other, Starting on Sat12/26/23 at 1017, Until Sat12/25/24 at 1016, For 365 days, Left EyeIndications:Macular edema, cystoid, bilateral Given 06/01/2024 9:33 AM EST 40 mg Eye Right Given 05/12/2024 2:27 PM EST 40 mg Ey e Left Given 01/10/2024 8:45 AM EDT 40 mg Ey e Left documented in this encounter Care Teams Supervisor Toy Assembly Relationship Specialty Start Date End Date Pro, Nathanael Pitts MD [address] [facility] [place] [address] PCP - General Internal Medicine 08/20/18 documented as of this encounter
[2024-06-02] MEDS: LACTATED RINGER'S 1,000 ML IV SCH (06:16)
[2024-06-02] MEDS: LR 60ML/HR IV SCH (06:16)
[2024-06-02] MEDS: GABAPENTIN 300 MG CAP PO SCH (06:18)
[2024-06-02] MEDS ORDERED: ATROPINE SULFATE 0.1 MG/ML 10ML SYR IV PRN (06:54)
[2024-06-02] MEDS ORDERED: fentaNYL citrate PF 100 MCG/2 ML VIAL IV PRN (06:54)
[2024-06-02] MEDS ORDERED: ONDANSETRON INJ 2 MG/ML 2 ML VIAL IV PRN (06:54)
[2024-06-02] MEDS ORDERED: ePHEDrine sulfate 50 MG/ML AMP IV PRN (06:54)
--- NOTE | 2024-06-02 06:54 | History & Physical Bridge Note ---
Date of Service June 02, 2024 History & Physical Bridge Note I have examined the patient, reviewed the History & Physical and in the interval since the performance of the History & Physical I have noted the following changes of clinical significance: no changes noted L3-4 lateral interbody fusion and cage placement, posterior fusion/instrumentation/decompression, L4-5 decompression, possible fusion/instrumentation
[2024-06-02] MEDS ORDERED: PROPOFOL IV EMULSION 10 MG/ML 100 ML VIAL IV ONE (07:03)
[2024-06-02] MEDS ORDERED: PHENYLEPHRINE HCL 10 MG/ML VIAL ONE ×2 (07:03→14:15)
[2024-06-02] MEDS ORDERED: DEXAMETHASONE SOD INJ 4 MG/ML VIAL ONE (07:03)
[2024-06-02] MEDS ORDERED: LIDOCAINE 2% 2 ML VIAL/AMP(20MG/ML) INFIL ONE (07:03)
[2024-06-02] MEDS ORDERED: ROCURONIUM BROMIDE 10 MG/ML 5 ML VIAL IV ONE ×2 (07:03→11:37)
[2024-06-02] MEDS ORDERED: fentaNYL citrate PF 100 MCG/2 ML VIAL ONE (07:03)
[2024-06-02] MEDS ORDERED: ONDANSETRON INJ 2 MG/ML 2 ML VIAL ONE (07:03)
[2024-06-02] MEDS ORDERED: PROPOFOL IV EMULSION 10 MG/ML 20 ML VIAL IV ONE ×2 (07:03→10:11)
[2024-06-02] MEDS ORDERED: HYDROmorphone INJ 2 MG/ML SYR/VIAL ONE (07:03)
[2024-06-02] MEDS ORDERED: GLYCOPYRROLATE 0.2 MG/ML VIAL ONE (08:38)
[2024-06-02] MEDS: ceFAZolin 2000MG 2,000 MG/15 ML SYR IV SCH (08:55)
[2024-06-02] MEDS: VANCOMYCIN HCL 1000MG/20ML VIAL ONE (09:03)
[2024-06-02] MEDS ORDERED: ceFAZolin 330 MG/ML 1 GM VIAL ONE (11:33)
[2024-06-02] MEDS: GELATIN SPONGE 12-7MM ONE (12:59)
[2024-06-02] MEDS: BUPIVACAINE/EPINEPHRINE 0.5% MPF 1:200,000 30 ML VIAL ONE (14:03)
[2024-06-02] MEDS: THROMBIN 5000 UNITS KIT ONE (14:03)
[2024-06-02] MEDS ORDERED: diphenhydrAMINE 50 MG/ML VIAL ONE (15:38)
[2024-06-02] MEDS ORDERED: SUGAMMADEX SODIUM 200 MG/2 ML VIAL IV ONE (15:49)
--- NOTE | 2024-06-02 16:02 | Post Operative Brief Note ---
PG Immediate Post Op with CF Date of Surgery June 02, 2024 Pre & Post Diagnosis Operation Date: 06/02/24 07:15 Pre-Op Diagnosis: Spinal Stenosis of Cervical Region with Radiculopathy Post-Op Diagnosis: Spinal Stenosis of Cervical Region with Radiculopathy I identified the patient and participated in the time-out.: Yes Procedure Operation Date: 06/02/24 07:15 Actual Procedures p L3-L4, L4-L5 Posterior Laminectomy and Fusion, L3-L4 Lateral Interbody Fusion and Cage Placement, L3,L4,L5 Posterior Instrumentation 3-6 Levels, Spinal Cord Monitoring(Not Applicable) - Mark Anthony Crain MD Surgeon Mark Anthony Crain MD Grant Administrator none Estimated Blood Loss 600 Findings Consistent with Post-Op Diagnosis Specimens Specimen Description: none per surgeon
[2024-06-02] MEDS: FLOSEAL HEMOSTATIC MATRIX 10ML TOP ONE (16:15)
[2024-06-02] MEDS ORDERED: ACETAMINOPHEN 1,000 MG/100 ML VIAL IV PRN (16:30)
[2024-06-02] MEDS ORDERED: bisacodyL 10 MG SUPP PR PRN (16:30)
[2024-06-02] MEDS ORDERED: SOD PHOSPHATE/SOD BIPHOSPHATE ENEMA 132 ML BTL PR PRN (16:30)
[2024-06-02] MEDS ORDERED: diphenhydrAMINE Capsule 25 MG CAP PO PRN (16:30)
[2024-06-02] MEDS ORDERED: ALUMINUM/MAGNESIUM SUSP 30 ML UDC PO PRN (16:30)
[2024-06-02] MEDS ORDERED: hydrOXYzine HCl 25 MG TAB PO PRN (16:30)
[2024-06-02] MEDS ORDERED: LORazepam 0.5 MG TAB PO PRN (16:30)
[2024-06-02] MEDS ORDERED: MAGNESIUM HYDROXIDE SUSP 30 ML UDC PO PRN (16:30)
[2024-06-02] MEDS ORDERED: LORazepam 2 MG/1 ML VIAL IV PRN (16:30)
[2024-06-02] MEDS ORDERED: DO NOT ADMINISTER PNEUMOCOCCAL VACCINE PRN (16:30)
[2024-06-02] MEDS ORDERED: NALOXONE HCL 0.4 MG/1 ML VIAL/CARP IV PRN (16:30)
[2024-06-02] MEDS ORDERED: FAMOTIDINE 20 MG TAB PO PRN (16:30)
[2024-06-02] MEDS ORDERED: HYDROmorphone INJ 0.5 MG/0.5 ML SYR IV PRN ×2 (16:30→20:57)
[2024-06-02] MEDS ORDERED: METOCLOPRAMIDE HCL INJ 5 MG/ML 2 ML VIAL IV PRN (16:30)
[2024-06-02] MEDS ORDERED: PROMETHAZINE 12.5 MG/50.5 ML BAG IV PRN (16:30)
[2024-06-02] MEDS ORDERED: oxyCODONE/ACETAMINOPHEN 5mg/325mg TAB PO PRN (16:30)
[2024-06-02] MEDS ORDERED: ONDANSETRON 4 MG OD TAB PO PRN (16:30)
[2024-06-02] MEDS ORDERED: PHARMACY GLYCEMIC MGMT CONSULT PRN (16:30)
[2024-06-02] MEDS ORDERED: DO NOT ADMINISTER FLU VACCINE PRN (16:30)
[2024-06-02 17:35] LABS: Basophils # (auto) 0.05 K/uL (0.00-0.20); Basophils % (auto) 0.3 %; Eosinophils # (auto) 0.01 K/uL (0.00-0.50); Eosinophils % (auto) 0.1 %; Hematocrit (blood only) 39.9 % (37.0-47.0); Hemoglobin 13.5 g/dl (12.0-16.0); Immature Granulocytes # (auto) 0.14 K/uL (0.01-0.20); Immature Granulocytes % (auto) 0.8 %; Lymphocytes # (auto) 1.28 K/uL (1.20-3.40); Lymphocytes % (auto) 7.2 %; Mean Corpuscular Hemoglobin 32.8 pg (25.0-34.0); Mean Corpuscular Hgb Conc 33.8 g/dL (32.0-36.0); Mean Corpuscular Volume 96.8 fL (80.0-100.0); Mean Platelet Volume 10.6 fL (9.4-12.4); Monocytes # (auto) 0.57 K/uL (0.11-0.59); Monocytes % (auto) 3.2 %; Neutrophils # (auto) 15.85 K/uL (1.40-6.50); Neutrophils % (auto) 88.4 %; Platelet Count 270 K/uL (130-400); RDW Coefficient of Variation 12.8 % (11.5-14.5); RDW Standard Deviation 45.8 fL (36.4-46.3); Red Blood Count 4.12 M/uL (4.20-5.40)
--- NOTE | 2024-06-02 18:46 | Anesthesiology Progress Note ---
Date of Service June 02, 2024 Anesthesia Post Procedure Vital Signs Vital Signs: Temp Pulse Pulse Resp BP BP Pulse Ox 06/02/24 18:40 96 H 10 L 95/80 L 96 06/02/24 18:30 90 13 86/48 L 95 06/02/24 18:20 92 H 12 84/58 L 93 06/02/24 18:10 97 H 15 84/61 L 92 06/02/24 18:00 96 H 15 82/60 L 94 06/02/24 17:50 96 H 10 L 83/64 L 93 06/02/24 17:40 99 H 12 92/67 L 92/71 L 94 06/02/24 17:30 91 H 11 L 101/83 92 06/02/24 17:20 93 H 10 L 97/78 L 94 06/02/24 17:10 91 H 10 L 96/54 L 95 06/02/24 17:00 90 7 L 83/60 L 95 06/02/24 16:50 94 H 11 L 89/72 L 97 06/02/24 16:44 36.1 C L 93 H 12 94/73 L 96 06/02/24 06:07 168/87 H 06/02/24 05:55 06/02/24 05:55 36.5 C 71 18 148/100 H 94 O2 Del Method O2 Flow Rate 06/02/24 18:40 Nasal Cannula 4 06/02/24 18:30 Nasal Cannula 4 06/02/24 18:20 Nasal Cannula 4 06/02/24 18:10 Nasal Cannula 4 06/02/24 18:00 Nasal Cannula 4 06/02/24 17:50 Nasal Cannula 4 06/02/24 17:40 Nasal Cannula 4 06/02/24 17:30 Oxymask 4 06/02/24 17:20 Oxymask 4 06/02/24 17:10 Oxymask 6 06/02/24 17:00 Oxymask 6 06/02/24 16:50 Oxymask 6 06/02/24 16:44 Oxymask 6 06/02/24 06:07 06/02/24 05:55 Room Air 06/02/24 05:55 Room Air Transfer of Care Handoff Completed per policy Notes Mental Status: alert / awake / arousable Patient Amnestic to Procedure: Yes Nausea / Vomiting: adequately controlled Pain: adequately controlled Airway Patency, RR, SpO2: stable & adequate BP & HR: stable & adequate and see Notes below Hydration State: stable & adequate and see Notes below Anesthetic Complications: no major complications apparent Notes: persistently soft BP after a 9 hour anesthetic. slow to wake. no indication of a focal deficit. ebl was appropriate for procedure and H/H in recovery adequate. map remains >60 so no indication for pressors at this time. will recommend PCU for disposition from pacu. hospitalist is on board with case for medical management overnight.
--- NOTE | 2024-06-02 19:38 | History & Physical Report ---
Date of Service June 02, 2024 Assessment & Plan (1) Degenerative spondylolisthesis: (2) Diabetic peripheral neuropathy associated with type 2 diabetes mellitus: (3) Spinal stenosis of cervical region with radiculopathy: (4) Stenosis, spinal, lumbar: (5) Hypothyroidism: (6) Adjustment disorder with anxiety: (7) Hypotension after procedure: (8) Hypoxia: Plan Pt is a 73 yo female with a past med hx of anxiety, hypothyroidism, DMT2 with associated neuropathy, and degenerative spondylolisthesis who presents to the hospital on 06/02/24 for scheduled laminectomy and fusion, admitted post- operatively for post op hypotension. #Spinal stenosis, cervical and lumbar - s/p laminectomy and fusion on 06/02/24 - pain meds prn #Hypotension - per nursing staff already got 3.5L IVF by time of admission - did get 8 gm dexamethasone 7 am post-op day - BP slowly improving - given elevated WBC count; lactate, urine + cx, CXR pending - preop cefazolin given, pending results for further antibiotics - suspect this is post anesthesia mediated as she is normally normotensive, not on BP meds, will do infectious workup though, post op hemoglobin wnl #Hypoxia, acute - no home O2 needs - did require oxygen post-op, weaning down slowly - typical hemoglobin levels run high; suggest maybe some component of ROSA could be contributing to this and may warrant further OP workup - CXR pending #DMT2 - pt on SSI - hold home trulicity - am HA1c #Anxiety - continue home bupropion tomorrow am - continue home lexapro tomorrow am - hold sedating agents such as ativan and hydroxyzine post-operatively #Hypothyroidism - continue home levothyroxine - am TSH DVT ppx: defer chemical ppx immediately post-op but consider starting tomorrow per surgeon recommendations History of Present Illness Chief Complaint: Hypotension post-op Primary Care Provider: Nathanael Dumont MD Pt is a 73 yo female with a past med hx of anxiety, hypothyroidism, DMT2 with associated neuropathy, and degenerative spondylolisthesis who presents to the hospital on 06/02/24 for scheduled laminectomy and fusion, admitted post-operativ jas for post op hypotension. Pt seen at bedside. Got out of surgery around 5 pm and seen around 7 pm. Pt noted to be very drowsy still post-operatively. She was able to follow commands but fell asleep periodically throughout exam. She denies pain anywhere. Moves all extremities spontaneously. Nursing staff available state she is slowly waking up but it has been slow. They have been able to wean down on her O2 slowly. No reported O2 use at home. Reportedly lives independently. Allergies Allergy/AdvReac Type Severity Reaction Status Date / Time doxycycline Allergy Severe Tongue Verified 06/02/24 05:50 swelling sulfamethoxazole Allergy Intermediate Hives Verified 06/02/24 05:50 [From Bactrim] trimethoprim [From Bactrim] Allergy Intermediate Hives Verified 06/02/24 05:50 propranolol [From Inderal LA] Allergy Unknown Unknown Verified 06/02/24 05:50 codeine AdvReac Intermediate GI upset Verified 06/02/24 05:50 erythromycin base AdvReac Intermediate GI upset Verified 06/02/24 05:50 metformin AdvReac Intermediate GI Upset Verified 06/02/24 05:50 Home Medications Medication Instructions Recorded Confirmed Type ascorbic acid (vitamin C) 1,000 mg 1 g PO QAM 01/05/19 06/02/24 History tablet (Vitamin C) Probiotic 1 cap PO DAILY 01/03/24 06/02/24 History cranberry 500 mg capsule 500 mg PO BID 01/03/24 06/02/24 History ursodiol 300 mg capsule 600 mg PO BID 01/03/24 06/02/24 History atorvastatin 20 mg tablet (Lipitor) 20 mg PO QPM #90 tabs 02/13/24 06/02/24 Rx methenamine hippurate 1 gram 1 g PO BID #180 tabs 03/17/24 06/02/24 Rx tablet (Hiprex) aspirin 81 mg capsule 81 mg PO QAM 05/07/24 06/02/24 History calcium carbonate (Calcium 600) 600 mg PO QAM 05/07/24 06/02/24 History cholecalciferol (vitamin D3) 25 25 mcg PO QAM 05/07/24 06/02/24 History mcg (1,000 unit) tablet (Vitamin D3) dulaglutide 0.75 mg/0.5 mL 0.75 mg subcut Q7D 05/07/24 06/02/24 [facility] meloxicam 7.5 mg tablet 7.5 - 15 mg PO DAILY Pain 05/07/24 06/02/24 History mupirocin 2 % topical ointment 1 applic topical BID PRN ear 05/07/24 06/02/24 History irritation triamcinolone acetonide 0.1 % 1 applic topical BID PRN Skin 05/07/24 06/02/24 History topical cream Irritation zinc 50 mg tablet 50 mg PO QAM 05/07/24 06/02/24 History bupropion HCl 150 mg tablet,12 hr 150 mg PO QAM #90 ea 05/21/24 06/02/24 Rx sustained-release (Wellbutrin SR) escitalopram oxalate 10 mg tablet 10 mg PO QAM #90 tabs 05/21/24 06/02/24 Rx (Lexapro) levothyroxine 88 mcg tablet 88 mcg PO QAM #90 tabs 05/21/24 06/02/24 Rx Past Med/Surg History Problem List Hypoxia Hypotension after procedure Encounter for pre-operative examination Degenerative spondylolisthesis Hypothyroidism Diabetic peripheral neuropathy associated with type 2 diabetes mellitus Diabetes mellitus, type 2 NIDDM Spinal stenosis of cervical region with radiculopathy Stenosis, spinal, lumbar Adjustment disorder with anxiety (Acute) Medical History Scoliosis Per records Degenerative spondylolisthesis Diabetic peripheral neuropathy associated with type 2 diabetes mellitus Hypothyroidism Adjustment disorder with anxiety Diabetes mellitus, type 2 NIDDM Unsteady gait Urge incontinence of urine Stenosis, spinal, lumbar Osteopenia Rosacea Memory loss or impairment IBS (irritable bowel syndrome) Overactive bladder Hx of Isamar thyroiditis Dyslipidemia Depression Asthma No current issues/no current inhaler Hx of benign essential tremor Tremor "resolved" after [facility] focus ultrasound Frequent UTI No current issues Hx of blood clots Right optic nerve clot ~2019, residual right sided vision impairment History of COVID-19 07/2021: headache,"cold like symtoms" > resolved end 01/2024: no residual symptoms History of migraine History of colon polyps Osteoarthritis History of renal calculi History of cystocele Surgical History Hx of cervical spine surgery C5-C7 cervical artificial disc arthroplasty (01/28/24): Grade 2 view, Glidescope#3, ETT 7.0 at [facility] History of rhytidectomy Nausea and vomiting after administration of anesthetic agent History of blepharoplasty History of esophagogastroduodenoscopy (EGD) History of colonoscopy History of partial hysterectomy History of knee replacement Left S/P implantation of urinary electronic stimulator device Removed Family History Mother Breast cancer Brother Hypertension Daughter Family history of reaction to anesthesia "she gets mean" Grandmother (Paternal) Family history of diabetes mellitus Diabetes Myocardial infarction Uncle Esophageal cancer Sister Hypertension Aunt Ovarian cancer Denies family history of Prostate cancer Social History Smoking Status: Current every day smoker Tobacco Type: Cigarettes packs per day: 0.5; Cigarettes Per Day: 10; Second Hand Exposure: No; Do You Dip or Chew Tobacco: No; Tobacco Cessation Education Requested by Patient: No Hx Alcohol Use: Yes Alcohol type: wine Alcohol Intake Frequency: 2-3 x/Week Hx Substance Use: No Preferred Language: Burmese Communication Ability: Effective Visual Impairment: No Limitations Hearing Ability: Normal Cad Drafter Required: No Beliefs That Will Affect Care: None marital status: Single Current Living Situation: Significant Other current occupational status: retired Other Information That Helps Us Care for You: No Feels Safe at Home: Yes Safety Concerns: Feels Safe At This Time Childhood Exposure to Second-Hand Smoke: Yes Dental Care, Regularly: Yes Physical Activity Frequency: Daily Seatbelt Use: always Sunscreen Use: Yes Assistive Devices: Glasses Assistive Devices Comment: has permanent dental implants Review of Systems Review of Systems: Unable to accurately access due to AMS post-op. Physical Exam Physical Exam: General: Alert but falls asleep intermittently, no acute distress, HEENT: Normocephalic, moist oral mucosa, Cardio: Regular rate and rhythm, no murmur, Resp: Lungs clear to auscultation b/l, no wheezes or rhonchi, GI: Soft and nontender, nondistended, bowel sounds active Skin: Warm, pink, dry, Extremities: moves all extremities spontaneously, no edema noted Results & Data Results & Data Vital Signs (Past 12 Hours) Vital Signs Temp Pulse Resp BP BP Pulse Ox O2 Del Method 06/02/24 19:00 36.5 C 89 21 83/65 L 96 Nasal Cannula 06/02/24 18:50 98 H 17 81/55 L 97 Nasal Cannula 06/02/24 18:40 96 H 10 L 95/80 L 96 Nasal Cannula 06/02/24 18:30 90 13 86/48 L 95 Nasal Cannula 06/02/24 18:20 92 H 12 84/58 L 93 Nasal Cannula 06/02/24 18:10 97 H 15 84/61 L 92 Nasal Cannula 06/02/24 18:00 96 H 15 82/60 L 94 Nasal Cannula 06/02/24 17:50 96 H 10 L 83/64 L 93 Nasal Cannula 06/02/24 17:40 99 H 12 92/67 L 92/71 L 94 Nasal Cannula 06/02/24 17:30 91 H 11 L 101/83 92 Oxymask 06/02/24 17:20 93 H 10 L 97/78 L 94 Oxymask 06/02/24 17:10 91 H 10 L 96/54 L 95 Oxymask 06/02/24 17:00 90 7 L 83/60 L 95 Oxymask 06/02/24 16:50 94 H 11 L 89/72 L 97 Oxymask 06/02/24 16:44 36.1 C L 93 H 12 94/73 L 96 Oxymask O2 Flow Rate 06/02/24 19:00 4 06/02/24 18:50 4 06/02/24 18:40 4 06/02/24 18:30 4 06/02/24 18:20 4 06/02/24 18:10 4 06/02/24 18:00 4 06/02/24 17:50 4 06/02/24 17:40 4 06/02/24 17:30 4 06/02/24 17:20 4 06/02/24 17:10 6 06/02/24 17:00 6 06/02/24 16:50 6 06/02/24 16:44 6 Laboratory Results Laboratory Results WBC 13.87 K/ul (4.8-10.8) H 06/03/24 01: RBC 3.58 M/uL (4.20-5.40) L 06/03/24 01:25 Hgb 11.6 g/dl (12.0-16.0) L 06/03/24:25 Hct 35.0 % (37.0-47.0) L 06/03/24:25 MCV 97.8 fL (80.0-100.0) 06/03/24:25 MCH 32.4 pg (25.0-34.0) 06/03/24: MCHC 33.1 g/dL (32.0-36.0) 06/03/24: RDW Std Deviation 46.1 fL (36.4-46.3) 06/03/24: RDW Coeff of Asher 12.8 % (11.5-14.5) 06/03/24: Plt Count 214 K/uL (130-400) 06/03/24: MPV 10.8 fL (9.4-12.4) 06/03/24:25 Immature Gran % (Auto) 0.4 % 06/03/24:25 Neut % (Auto) 82.0 % 06/03/24:25 Lymph % (Auto) 6.9 % 06/03/24 01:25 [place] % (Auto) 10.4 % 06/03/24:25 Eos % (Auto) 0.0 % 06/03/24:25 Baso % (Auto) 0.3 % 06/03/24:25 Neut # (Auto) 11.37 K/uL (1.40-6.50) H 06/03/24:25 Lymph # (Auto) 0.96 K/uL (1.20-3.40) L 06/03/24:25 [place] # (Auto) 1.44 K/uL (0.11-0.59) H 06/03/24:25 Eos # (Auto) 0.00 K/uL (0.00-0.50) 06/03/24:25 Baso # (Auto) 0.04 K/uL (0.00-0.20) 06/03/24:25 Immature Gran # (Auto) 0.06 K/uL (0.01-0.20) 06/03/24 01:25 Sodium 138 mmol/L (136-145) 06/03/24:25 Potassium 5.0 mmol/L (3.5-5.1) 06/03/24 01:25 Chloride 104 mmol/L (98-107) 06/03/24 01:25 Carbon Dioxide 30 mmol/L (21-32) 06/03/24 01:25 Anion Gap 4 (3-11) 06/03/24 01:25 BUN 19 mg/dl (6-23) 06/03/24 01:25 Creatinine 0.94 mg/dl (0.6-1.2) 06/03/24 01:25 Est Cr Clr Drug Dosing 46.8 ml/min 06/03/24 01:25 eGFR 63.28 06/03/24:25 BUN/Creatinine Ratio 20.2 (10-20) H 06/03/24 01:25 Glucose 171 mg/dl (70-99(Fasting)) H 06/03/24:25 POC Glucose 217 mg/dl (70-99) H 06/02/24 21:18 Lactate 2.7 mmol/L (0.4-2.0) H* 06/03/24 01:25 Calcium 8.6 mg/dl (8.6-10.3) 06/03/24 01:25 Magnesium 1.6 mg/dl (1.7-2.4) L 06/03/24 01:25 Total Bilirubin 0.4 mg/dl (0.2-1.0) 06/03/24 01:25 AST 21 U/L (13-39) 06/03/24:25 ALT 13 U/L (7-52) 06/03/24 01:25 Alkaline Phosphatase 150 U/L (34-104) H 06/03/24 01:25 Lactate Dehydrogenase 159 U/L (86-244) 06/02/24 20:05 Total Protein 5.4 gm/dl (6.0-8.3) L 06/03/24:25 Albumin 3.1 gm/dl (3.4-5.0) L 06/03/24 01:25 Globulin 2.3 gm/dl (2.5-4.0) L 06/03/24 01:25 Albumin/Globulin Ratio 1.3 (0.9-2) 06/03/24 01:25 Procalcitonin 0.03 ng/ml (0-0.5) 06/02/24 20:05 Urine Color Yellow 06/02/24 Unknown Urine Appearance Cloudy (Clear) A 06/02/24 Unknown Urine pH 5.5 (4.5-7.5) 06/02/24 Unknown Ur Specific [place] 1.028 (1.000-1.030) 06/02/24 Unknown Urine Protein 1+ (Negative) H 06/02/24 Unknown Urine Glucose (UA) Negative (Negative) 06/02/24 Unknown Urine Ketones Negative (Negative) 06/02/24 Unknown Urine Blood 3+ (Negative) H 06/02/24 Unknown Urine Nitrite Negative (Negative) 06/02/24 Unknown Urine Bilirubin Negative (Negative) 06/02/24 Unknown Urine Urobilinogen Negative (Negative) 06/02/24 Unknown Ur Leukocyte Esterase 1+ (Negative) H 06/02/24 Unknown Urine WBC (Auto) 21-50 /hpf (0-5) H 06/02/24 Unknown Urine RBC (Auto) >20 /hpf (0-2) H 06/02/24 Unknown U Hyaline Cast (Auto) >20 /lpf (0-2) H 06/02/24 Unknown U Epithel Cells (Auto) 11-20 /hpf (0-2) H 06/02/24 Unknown Urine Bacteria (Auto) None Seen (None Seen) 06/02/24 Unknown Blood Type O Negative 06/02/24 05:53 Antibody Screen NEGATIVE 06/02/24 05:53 Crossmatch See Detail 06/02/24 05:53 Impressions Chest X-Ray 06/02/24 19:51 Exam(s): XR CXR 1 VIEW EXAM: XR Chest, 1 View CLINICAL HISTORY: Reason for exam: Oxygen requirement, elevated WBC count. TECHNIQUE: Frontal view of the chest. COMPARISON: No relevant prior studies available. FINDINGS: Lungs: Unremarkable. No consolidation. Pleural space: Unremarkable. No pneumothorax. Heart: Unremarkable. No cardiomegaly. Mediastinum: Unremarkable. Normal mediastinal contour. Bones/joints: Unremarkable. No acute fracture. IMPRESSION: Normal chest x-ray. Electronically signed by: Can Agustin MD 06/02/24 21:27 PM Code Status & VTE Plan VTE Prophylaxis Plan VTE Prophylaxis will be ordered: Yes Supervising Physician Co-Signing Physician Notes Patient seen and examined, chart reviewed, case discussed with Dr. Santoro and I agree with the assessment and plan as above. Patient s/p laminectomy performed today, general anesthesia, KWP=[id number] Ongoing hypotension BPs 80-90's despite IVF Examined at bedside 209-1 Blood pressure 80's/50's confirmed with manual cuff Skin - no rash HEENT - Dry mm, patient reports feeling very thirsty Heart - +S1/S2, regular, no m/r/g Lungs - CTA anteriorly, no rales/rhonchi/wheezes Abd - +BS, soft, NT/ND Ext - no edema Surgical site with dressing in place, no bleeding/drainage MS 5/5 in LE bilaterally Labs and images reviewed Assessment/Plan Hypotension - suspect multifactorial - acute blood loss post-op, dehydration, medication effects Patient has received IVF with minimal improvement in BP Will continue infectious workup Continue IVF Remainder as above Resident Activity Tracking Resident Involvement: Resident Care Provided Care Provided: Adult Hospital Medicine
[2024-06-02 20:38] LABS: Albumin Globulin Ratio 1.3 (0.9-2); Albumin Level 3.2 gm/dl (3.4-5.0); BUN Creatinine Ratio 15.4 (10-20); Bilirubin,Total 0.3 mg/dl (0.2-1.0); Calcium 8.6 mg/dl (8.6-10.3); Creatinine Clr Calc Pharmacy 46.9 ml/min; Globulin 2.4 gm/dl (2.5-4.0); Total Protein 5.6 gm/dl (6.0-8.3)
[2024-06-02 20:47] LABS: Appearance Urine Cloudy (Clear); Bacteria Urine Automated None Seen (None Seen); Bilirubin Urine Negative (Negative); Blood Urine 3+ (Negative); Cast Urine Automated >20 /lpf (0-2); Color Urine Yellow; Glucose Urine UA Negative (Negative); Ketones Urine Negative (Negative); Leukocyte Esterase Urine 1+ (Negative); Nitrite Urine Negative (Negative); Protein Urine 1+ (Negative); RBC Urine Automated >20 /hpf (0-2); Specific Gravity Urine 1.028 (1.000-1.030); Urobilinogen Urine Negative (Negative); WBC Urine Automated 21-50 /hpf (0-5); pH Urine 5.5 (4.5-7.5)
[2024-06-02] MEDS: INSULIN ASPART PER UNIT CHARGE SC SCH (21:21)
--- NOTE | 2024-06-02 21:28 | XRay Report ---
Exam(s): XR CXR 1 VIEW EXAM: XR Chest, 1 View CLINICAL HISTORY: Reason for exam: Oxygen requirement, elevated WBC count. TECHNIQUE: Frontal view of the chest. COMPARISON: No relevant prior studies available. FINDINGS: Lungs: Unremarkable. No consolidation. Pleural space: Unremarkable. No pneumothorax. Heart: Unremarkable. No cardiomegaly. Mediastinum: Unremarkable. Normal mediastinal contour. Bones/joints: Unremarkable. No acute fracture. IMPRESSION: Normal chest x-ray. Electronically signed by: Can Agustin MD 06/02/24 21:27 PM
[2024-06-02] MEDS: DOCUSATE SODIUM/SENNA 50/8.6MG TAB PO SCH (21:30)
[2024-06-02] MEDS: LANTUS PER UNIT CHARGE SC ONE (21:31)
[2024-06-02] MEDS: ceFAZolin 1000MG 1,000 MG/7.5 ML SYR IV SCH (22:18)
[2024-06-03] MEDS: LR 15ML/HR IV SCH (01:36)
[2024-06-03 01:52] LABS: Basophils # (auto) 0.04 K/uL (0.00-0.20); Basophils % (auto) 0.3 %; Hemoglobin 11.6 g/dl (12.0-16.0); Immature Granulocytes # (auto) 0.06 K/uL (0.01-0.20); Immature Granulocytes % (auto) 0.4 %; Lymphocytes # (auto) 0.96 K/uL (1.20-3.40); Lymphocytes % (auto) 6.9 %; Mean Corpuscular Hemoglobin 32.4 pg (25.0-34.0); Mean Corpuscular Hgb Conc 33.1 g/dL (32.0-36.0); Mean Corpuscular Volume 97.8 fL (80.0-100.0); Mean Platelet Volume 10.8 fL (9.4-12.4); Monocytes # (auto) 1.44 K/uL (0.11-0.59); Monocytes % (auto) 10.4 %; Neutrophils # (auto) 11.37 K/uL (1.40-6.50); Platelet Count 214 K/uL (130-400); RDW Coefficient of Variation 12.8 % (11.5-14.5); RDW Standard Deviation 46.1 fL (36.4-46.3); Red Blood Count 3.58 M/uL (4.20-5.40); White Blood Count 13.87 K/ul (4.8-10.8)
[2024-06-03 02:03] LABS: Albumin Globulin Ratio 1.3 (0.9-2); Albumin Level 3.1 gm/dl (3.4-5.0); BUN Creatinine Ratio 20.2 (10-20); Bilirubin,Total 0.4 mg/dl (0.2-1.0); Calcium 8.6 mg/dl (8.6-10.3); Creatinine Clr Calc Pharmacy 46.8 ml/min; Globulin 2.3 gm/dl (2.5-4.0); Magnesium 1.6 mg/dl (1.7-2.4); Total Protein 5.4 gm/dl (6.0-8.3)
--- NOTE | 2024-06-03 02:12 | Communication Note ---
Date of Service: June 03, 2024 Alerted by nursing that patient remains hypotensive overnight. Patient seen and examined. She remains confused in the post op period. Most recent BP when I evaluated the patient was 74/53. Patient has had very little UOP post op. I ordered a 1L fluid bolus. This will be her 5th liter of fluid administered today. After about 500mL of this fluid was administered, BP improved slightly. Labs revealed lactate of 2.7, elevated BUN/Cr ratio which point to her being dry. Hb dropped by about 2 points in interval between pre and post op labs. EBL was 600cc. Suspect she may have been hemoconcentrated prior to surgery and this plus blood loss and insensible losses resulted in a hypovolemic state. Will continue gentle maintenance fluids after bolus is complete. Leos to remain in place until UOP improves. Mag is low and this will be repleted. Resident Activity Tracking Resident Involvement: Resident Care Provided Care Provided: Adult Hospital Medicine
--- NOTE | 2024-06-03 02:16 | Billing Data ---
Date of Service June 02, 2024 Coding Level of Care Code 12264 INT INP/OBS CARE
[2024-06-03 02:18] LABS: Thyroid Stimulating Hormone 0.469 uIu/ml (0.300-4.500)
[2024-06-03] MEDS: SODIUM CHLORIDE 0.9% 1,000 ML IV SCH (02:44)
[2024-06-03] MEDS: MAGNESIUM SULFATE / D5W 1 GM/100 ML BAG IV SCH ×2 (02:45→09:26)
[2024-06-03] MEDS: POLYETHYLENE (MIRALAX) 17 GM PACK PO SCH (06:37)
[2024-06-03] MEDS: LEVOTHYROXINE SODIUM 88 MCG TABLET PO SCH (06:39)
--- NOTE | 2024-06-03 07:37 | Fluoroscopy Report ---
FL lumbar spine 2-3V CLINICAL HISTORY: Lumbar spine COMPARISON STUDY: Lumbar spine MRI November 10, 2023. FLUOROSCOPY TIME: 2 minutes and 44 seconds. Ka,r: 159.97 mGy FLUOROSCOPIC IMAGES: 15 FINDINGS: Fluoroscopy was provided during L3-L5 decompression with L3-L4 discectomy with interbody sp acer placement. There are bilateral pedicle screws at the L3, L4 and L5 levels with interconnecting r ods. Linear radiodensities within the operative bed on initial images were not present on the final i mages. IMPRESSION: Fluoroscopy provided during L3-L5 decompression and fusion. ACT 112: Negative or not required by law. Electronically signed by: Cristian Cortez M.D. 06/03/2024 7:35 AM
[2024-06-03 07:59] LABS: Estimated Average Glucose 143 mg/dl; Hemoglobin A1C 6.6 % (4.5-5.6)
[2024-06-03] MEDS: LANTUS PER UNIT CHARGE SC SCH (09:27)
[2024-06-03] MEDS: ESCITALOPRAM OXALATE 10 MG TAB PO SCH (09:27)
[2024-06-03] MEDS: buPROPion SR 150 MG TABCR PO SCH (09:27)
--- NOTE | 2024-06-03 12:18 | Hospitalist Progress Note ---
Date of Service June 03, 2024 Assessment & Plan (1) Stenosis, spinal, lumbar: Plan: Postoperative day #1 after L3-L5 laminectomy with fusion and instrumentation. Management per orthopedic spine service (2) Hypotension after procedure: Plan: Antihypertensives are on hold. Continue IV fluids. IV bolus ordered and pending. Supportive care (3) Hypothyroidism: Plan: Stable. Continue current thyroid replacement dosage (4) Type 2 diabetes mellitus: Plan: ADA diet. Sliding scale coverage. Twice daily basal insulin for now. She takes Trulicity at home Plan The hospitalist service will see the patient daily and manage the medical problems. Eventual discharge by primary service Admission and Anticipated Discharge Date Admission Date: June 02, 2024 Subjective Somewhat drowsy but oriented x 3. is at the bedside. Her blood pressure is running somewhat low and IV fluids continue along with a bolus. Antihypertensive medications are on hold. Review of Systems 2 Review of Systems: Constitutionalno fever or chills ENTno blurred vision, no double vision, no epistaxis, no sore throat Respiratoryno cough, no wheezing, no shortness of breath Cardiacno palpitations, no chest pain, no syncope Pricila nausea, vomiting, diarrhea, melena, hematochezia GUno urinary retention, no urinary incontinence, no dysuria, no hematuria Musculoskeletalpostoperative lumbar discomfort as expected. No joint pain, no muscle tenderness Skinno bruising, no rashes, no pruritus Neurono isolated weakness, no paresthesia Psychno depression, no anxiety Physical Exam 2 Physical Exam: General-alert and oriented x3, no fever, no chills HEENT-head atraumatic and normocephalic, pupils equal and reactive to light, extraocular muscles intact Neck-no lymphadenopathy or thyromegaly, trachea midline Chest-clear to auscultation. No rales, wheezing or rhonchi Cardiac-regular rate and rhythm, normal S1 and S2 Abdomen-normal bowel sounds, no hepatosplenomegaly Extremities-no cyanosis, clubbing, or edema Neuro-cranial nerves II through XII intact, motor and sensory function within normal limits, strength symmetrical, no focal deficits Psych-normal affect, normal mood Results & Data Results & Data Vital Signs (Past 12 Hours) Vital Signs Temp Pulse Pulse Resp BP BP Pulse Ox 06/03/24 12:12 98/61 L 06/03/24 12:08 65 77/52 L 95 06/03/24 12:05 65 65/41 L 06/03/24 11:39 78/58 L 06/03/24 10:27 68 17 100/68 95 06/03/24 09:41 89/51 L 06/03/24 08:00 06/03/24 07:44 79 06/03/24 07:11 75 19 105/60 98 06/03/24 06:36 96/66 L 06/03/24 04:43 84/65 L 06/03/24 03:34 36.3 C L 80 18 88/60 L 98 06/03/24 02:18 67 10 L 98 06/03/24 02:13 97/59 L 06/03/24 01:39 71 13 94 06/03/24 01:34 95/70 L 06/03/24 01:34 95/70 L 06/03/24 01:34 95/70 L 06/03/24 01:34 95/70 L 06/03/24 01:34 95/70 L 06/03/24 01:33 75 15 98 06/03/24 01:24 80/65 L 06/03/24 01:24 80/65 L 06/03/24 01:21 73 11 L 97 06/03/24 01:12 83 12 95 06/03/24 01:00 77 16 96 06/03/24 00:57 73 14 96 06/03/24 00:57 74/53 L 06/03/24 00:51 74/53 L 06/03/24 00:51 74/53 L 06/03/24 00:45 74 11 L 97 06/03/24 00:42 75 11 L 95 06/03/24 00:21 76 21 96 06/03/24 00:15 75 10 L 96 O2 Del Method O2 Flow Rate 06/03/24 12:12 06/03/24 12:08 Room Air 06/03/24 12:05 06/03/24 11:39 06/03/24 10:27 Room Air 06/03/24 09:41 06/03/24 08:00 Nasal Cannula 2 06/03/24 07:44 06/03/24 07:11 Nasal Cannula 2 06/03/24 06:36 06/03/24 04:43 06/03/24 03:34 Nasal Cannula 06/03/24 02:18 06/03/24 02:13 06/03/24 01:39 06/03/24 01:34 06/03/24 01:34 06/03/24 01:34 06/03/24 01:34 06/03/24 01:34 06/03/24 01:33 06/03/24 01:24 06/03/24 01:24 06/03/24 01:21 06/03/24 01:12 06/03/24 01:00 06/03/24 00:57 06/03/24 00:57 06/03/24 00:51 06/03/24 00:51 06/03/24 00:45 06/03/24 00:42 06/03/24 00:21 06/03/24 00:15 Laboratory Results 06/03/24 01:25 06/03/24 01:25 PG Care Time/CCT Total # of Minutes Spent Total Time Spent with Patient: Total time spent is greater than 50% in coordination of care (as documented) at patient's floor/unit and/or counseling patient: Coding Level of Care Code 97509 SUB INP/OBS CARE 3/50MIN Diagnoses Stenosis, spinal, lumbar M48.061 Hypotension after procedure I95.81 Hypothyroidism E03.9 Type 2 diabetes mellitus E11.9
[2024-06-03] MEDS: SODIUM CHLORIDE 0.9% 250 ML IV ONE (12:25)
[2024-06-03] MEDS: ACETAMINOPHEN 500 MG TAB PO PRN (12:30)
--- NOTE | 2024-06-03 12:58 | Orthopedic Progress Note ---
Date of Service June 03, 2024 Subjective Patient seen examined she has some incisional pain from symptoms. Has been out of bed to toilet. Incision site serosanguineous drainage, dressing changed. No focal motor weakness. H/H 11. Impression: Postop day 1 compression with periods of hypotension. Plan: As per hospitalist, will continue with fluid versus monitor labs, mobilization with physical therapy tolerated. Review of Systems All systems reviewed & are unremarkable except as noted in HPI & below. Physical Exam . Results & Data Results & Data Laboratory Results . Diagnostic Findings . PG Care Time/CCT Total # of Minutes Spent Total Time Spent with Patient: Total time spent is greater than 50% in coordination of care (as documented) at patient's floor/unit and/or counseling patient: Coding Level of Care Code 05902 Post Operative Follow-Up
[2024-06-03] MEDS: SODIUM CHLORIDE 0.9% 500 ML IV ONE (17:19)
[2024-06-03] MEDS ORDERED: LANTUS PER UNIT CHARGE SC SCH ×2 (21:00)
[2024-06-04] MEDS: ONDANSETRON INJ 2 MG/ML 2 ML VIAL IV PRN (06:22)
--- NOTE | 2024-06-04 06:50 | Electrocardiogram Report ---
Test Reason : Blood Pressure : */* mmHG Vent. Rate : 88 BPM Atrial Rate : 88 BPM P-R Int : 152 ms QRS Dur : 86 ms QT Int : 388 ms P-R-T Axes : 67 -61 38 degrees QTcB Int : 469 ms Poor data quality, interpretation may be adversely affected Normal sinus rhythm Left anterior fascicular block Cannot rule out Inferior infarct (masked by fascicular block?) , age undetermined Abnormal ECG When compared with ECG of 08-Jan-2024 13:44, Vent. rate has increased by 33 bpm T wave inversion no longer evident in Anterolateral leads QT has lengthened Confirmed by Kane Blake ([id number]) on 06/04/2024 6:50:14 AM Referred By: Mark Anthony Crain Confirmed By: Kane Blake
--- NOTE | 2024-06-04 09:03 | Orthopedic Progress Note ---
Date of Service June 04, 2024 Subjective Patient seen and examined, she has some slight confusion, but is expressing a desire to mobilize out of bed and do some ambulation. She notes that she has been frequently up to the restroom. Incision site reveals some limited serosanguineous drainage. Motor intact in lower extremities. Impression: Postop day 2 from posterior lumbar decompression fusion instrumentation L3-L5, issues with blood pressure postoperatively. Plan: Continue with physical therapy for ambulation and mobilization. Discharge planning should include tensional rehab placement depending on patient and family members. Review of Systems All systems reviewed & are unremarkable except as noted in HPI & below. Physical Exam . Results & Data Results & Data Laboratory Results . Diagnostic Findings . PG Care Time/CCT Total # of Minutes Spent Total Time Spent with Patient: Total time spent is greater than 50% in coordination of care (as documented) at patient's floor/unit and/or counseling patient: Coding Level of Care Code 63996 Post Operative Follow-Up
[2024-06-04 09:04] LABS: Basophils # (auto) 0.04 K/uL (0.00-0.20); Basophils % (auto) 0.4 %; Eosinophils # (auto) 0.06 K/uL (0.00-0.50); Eosinophils % (auto) 0.6 %; Hematocrit (blood only) 29.7 % (37.0-47.0); Immature Granulocytes # (auto) 0.05 K/uL (0.01-0.20); Immature Granulocytes % (auto) 0.5 %; Lymphocytes # (auto) 1.09 K/uL (1.20-3.40); Lymphocytes % (auto) 10.6 %; Mean Corpuscular Hemoglobin 32.6 pg (25.0-34.0); Mean Corpuscular Hgb Conc 33.7 g/dL (32.0-36.0); Mean Corpuscular Volume 96.7 fL (80.0-100.0); Mean Platelet Volume 10.6 fL (9.4-12.4); Monocytes % (auto) 9.7 %; Neutrophils # (auto) 8.05 K/uL (1.40-6.50); Neutrophils % (auto) 78.2 %; Platelet Count 199 K/uL (130-400); RDW Coefficient of Variation 13.2 % (11.5-14.5); RDW Standard Deviation 46.6 fL (36.4-46.3); Red Blood Count 3.07 M/uL (4.20-5.40); White Blood Count 10.29 K/ul (4.8-10.8)
[2024-06-04 09:24] LABS: BUN Creatinine Ratio 18.9 (10-20); Calcium 8.3 mg/dl (8.6-10.3); Creatinine Clr Calc Pharmacy 85.8 ml/min; Magnesium 1.9 mg/dl (1.7-2.4); Potassium 3.7 mmol/L (3.5-5.1)
--- NOTE | 2024-06-04 13:42 | Hospitalist Progress Note ---
Date of Service June 04, 2024 Assessment & Plan (1) Stenosis, spinal, lumbar: Plan: Postoperative day #2 after L3-L5 laminectomy with fusion and instrumentation. Management per orthopedic spine service (2) Hypotension after procedure: Plan: Midodrine started today, June 04. She has received multiple intravenous fluid boluses. Hemoglobin is stable. Supportive care (3) Hypothyroidism: Plan: Stable. Continue current thyroid replacement dosage (4) Type 2 diabetes mellitus: Plan: ADA diet. Sliding scale coverage. Twice daily basal insulin for now. She takes Trulicity at home. Glucose 119 this morning, June 04 Plan The hospitalist service will see the patient daily and manage the medical problems. Eventual discharge to home by primary service. Hopefully tomorrow, June 05 Admission and Anticipated Discharge Date Admission Date: June 02, 2024 Subjective Alert and oriented. Persistent recurrent hypotension with lightheadedness prompted initiation of midodrine 5 mg 3 times a day. Oxygen has been weaned down to 1 L. Incentive spirometry added. I suspect she will be on room air soon. Hopeful discharge to home tomorrow, June 05 Review of Systems 2 Review of Systems: Constitutionalno fever or chills ENTno blurred vision, no double vision, no epistaxis, no sore throat Respiratoryno cough, no wheezing, no shortness of breath Cardiacno palpitations, no chest pain, no syncope Pricila nausea, vomiting, diarrhea, melena, hematochezia GUno urinary retention, no urinary incontinence, no dysuria, no hematuria Musculoskeletalpostoperative lumbar discomfort as expected. No joint pain, no muscle tenderness Skinno bruising, no rashes, no pruritus Neurono isolated weakness, no paresthesia Psychno depression, no anxiety Physical Exam 2 Physical Exam: General-alert and oriented x3, no fever, no chills HEENT-head atraumatic and normocephalic, pupils equal and reactive to light, extraocular muscles intact Neck-no lymphadenopathy or thyromegaly, trachea midline Chest-clear to auscultation. No rales, wheezing or rhonchi Cardiac-regular rate and rhythm, normal S1 and S2 Abdomen-normal bowel sounds, no hepatosplenomegaly Extremities-no cyanosis, clubbing, or edema Neuro-cranial nerves II through XII intact, motor and sensory function within normal limits, strength symmetrical, no focal deficits Psych-normal affect, normal mood Results & Data Results & Data Vital Signs (Past 12 Hours) Vital Signs Temp Pulse Pulse Resp BP BP Pulse Ox 06/04/24 11:07 80 17 109/70 93 06/04/24 10:16 105/63 98/70 L 06/04/24 08:00 75 06/04/24 07:35 79 18 95/63 L 100/65 92 06/04/24 05:31 107/61 06/04/24 03:58 36.9 C 76 20 80/60 L 94 O2 Del Method O2 Flow Rate 06/04/24 11:07 Nasal Cannula 1 06/04/24 10:16 06/04/24 08:00 06/04/24 07:35 Nasal Cannula 1 06/04/24 05:31 06/04/24 03:58 Nasal Cannula 2 Laboratory Results 06/04/24 08:43 06/04/24 08:43 PG Care Time/CCT Total # of Minutes Spent Total Time Spent with Patient: Total time spent is greater than 50% in coordination of care (as documented) at patient's floor/unit and/or counseling patient: Coding Level of Care Code 63241 SUB INP/OBS CARE 3/50MIN Diagnoses Stenosis, spinal, lumbar M48.061 Hypotension after procedure I95.81 Hypothyroidism E03.9 Type 2 diabetes mellitus E11.9
[2024-06-04] MEDS: MIDODRINE HCL 2.5 MG TAB PO SCH (14:09)
--- NOTE | 2024-06-04 15:51 | Operative Report ---
PG Post Operative Report Pre & Post Diagnosis Operation Date: 06/02/24 07:15 Pre-Op Diagnosis: Spinal Stenosis of Cervical Region with Radiculopathy Post-Op Diagnosis: Spinal Stenosis of Cervical Region with Radiculopathy I identified the patient and participated in the time-out.: Yes Procedure Operation Date: 06/02/24 07:15 Actual Procedures p L3-L4, L4-L5 Posterior Laminectomy and Fusion, L3-L4 Lateral Interbody Fusion and Cage Placement, L3,L4,L5 Posterior Instrumentation 3-6 Levels, Spinal Cord Monitoring(Not Applicable) - Mark Anthony Crain MD Surgeon Mark Anthony Crain MD Electric Meter Inspector none Estimated Blood Loss 600 Findings Consistent with Post-Op Diagnosis Specimens none Indications Lumbar stenosis/radiculopathy Description of Procedure 1. L3-4 left lateral interbody arthrodesis. (26602) 2. L3-4 lateral interbody cage placement, NuVasive cohere 10 x 18 x 55. (2 4215) 3. L3-4 posterior lumbar laminectomy/decompression. (42858) 4. L4-5 posterior lumbar laminectomy/decompression. (14673) 5. L3-4 Posterior lumbar arthrodesis. (06627) 6. L4-5 posterior lumbar arthrodesis. (64894) 7. L345 posterior segmental instrumentation, NuVasive reline. (82140) 8. Utilization of products of decompression for fusion purposes. (66215) Patient was taken the operating and after adequate anesthesia was carefully positioned on the OR table right lateral decubitus position left side up for a lateral approach to the L3-4 level. Patient was secured in standard fashion, I used fluoroscopy to make adjustments to the positioning followed by the preprepped. The approximate location of the incision was marked with fluoroscopy followed by prep and drape. Transverse incision was then made over the iliac crest, and through this I carefully dissected down through the subcutaneous layers into the retroperitoneal area without any issue. I was able to palpate the psoas, I then inserted the initial dilator from the NuVasive set and advanced this down to the midportion of the L3-4 level. Monitoring was utilized to confirm no issues with the site, the guidewire was inserted followed by then the additional dilators checking for monitoring. The access apparatus was then inserted and made adjustments to the position followed by then inspection of the area and utilization of the probe to inspect the region and then placement of the fatmata for stabilization. The lateral annulotomy was performed followed by thorough discectomy removal of cartilage of endplates. These dilators to mobilize the right side of the disc base which was notably collapsed advancing up to the point where he had trials inserted selecting the size cage as noted to improve the overall alignment and indirectly decompress the right foraminal region. I continued to do discectomy with the increase in the overall disc base area followed by then obtaining the cage. Fusion materials were packed within the cage and then inserted with excellent position on AP and lateral views. Vancomycin powder was placed, the operative site was closed with combination of 0 and 2-0 Vicryl sutures followed by raya for the skin and a sterile dressing. Patient was then repositioned prone on the Jeffrey frame, fluoroscopy was brought) marked for the incision to address the L3-4 and L4-5 levels. This area was marked, prep and drape was performed. I began the posterior aspect of the midline incision carried out over the spinous processes and advanced down to either side of the spine at L3-4 and L4-5 exposing the transverse processes of L3-L4 and L5, the facets at interlaminar region. Upon conclusion, I then utilized the fluoroscopy and high-speed bur to make the start point for the pedicle screw instrumentation at L3-L4 and L5. Regions then sized Ferderber was made to make the start point followed by insertion of the gearshift probe, monitoring was utilized with insertion of a probe and also the tap greater than 20 noted with each instrument. 6.5 millimeter screws were then inserted at all 3 levels and inserted under fluoroscopic control. All screws had greater than 20 readings on a monitoring system. The decompression was then performed, this included removal of spinous process and tissues overlying the interlaminar region at both L3-4 and L4-5. A high-speed bur was then utilized to perform the laminectomies for starting at L4-5 across the inferior laminar edge of L4 across the superior lamina edge of L5 along the medial facets on both sides decompressing the exiting L4 and L5 nerve roots, removal of thickened ligamentum flavum and epidural fat decompressing the segment thoroughly. Upon conclusion there were issues were noted in terms of any dural leakage, Floseal was applied along with a neuro cesar. And then performed the same process at the L3-4 level. This included the bilateral laminectomies partial medial facetectomies and foraminotomies decompressing the L3 and L4 nerve roots. In this instance once again the thickened ligamentum flavum and epidural lipomatosis was removed with decompression of the segment. The bone dust obtained from the decompressions was collected using [employer] ([place]) device, this was then combined with remaining fusion materials and then packed in the posterolateral region on both sides, the decortication has been performed earlier in the procedure. I then selected rods from the NuVasive reline set, these were inserted on both sides, with some distraction on the right side at L3-4 and some compression on the left side at L4-5 improving some of the overall alignment of the segments. All setscrews were torqued down properly. Irrigation already been performed before insertion of the fusion materials, I then applied vancomycin powder and closed this in 2 layers of 0 Vicryl sutures followed by 2-0 Vicryl sutures and raya for the skin. Sterile dressing was applied, patient tolerated procedure well was taken recovery room satisfactory condition. I attest to the content of the Intraoperative Record and any orders documented therein. Any exceptions are noted below.
[2024-06-05 07:33] LABS: Basophils # (auto) 0.04 K/uL (0.00-0.20); Basophils % (auto) 0.4 %; Eosinophils # (auto) 0.05 K/uL (0.00-0.50); Eosinophils % (auto) 0.4 %; Hematocrit (blood only) 28.6 % (37.0-47.0); Hemoglobin 9.8 g/dl (12.0-16.0); Immature Granulocytes # (auto) 0.05 K/uL (0.01-0.20); Immature Granulocytes % (auto) 0.4 %; Lymphocytes # (auto) 1.47 K/uL (1.20-3.40); Lymphocytes % (auto) 13.1 %; Mean Corpuscular Hemoglobin 32.8 pg (25.0-34.0); Mean Corpuscular Hgb Conc 34.3 g/dL (32.0-36.0); Mean Corpuscular Volume 95.7 fL (80.0-100.0); Mean Platelet Volume 10.9 fL (9.4-12.4); Monocytes # (auto) 1.22 K/uL (0.11-0.59); Monocytes % (auto) 10.9 %; Neutrophils # (auto) 8.38 K/uL (1.40-6.50); Neutrophils % (auto) 74.8 %; Platelet Count 203 K/uL (130-400); RDW Coefficient of Variation 13.1 % (11.5-14.5); RDW Standard Deviation 45.8 fL (36.4-46.3); Red Blood Count 2.99 M/uL (4.20-5.40); White Blood Count 11.21 K/ul (4.8-10.8)
[2024-06-05 08:06] LABS: BUN Creatinine Ratio 21.7 (10-20); Calcium 8.2 mg/dl (8.6-10.3); Creatinine Clr Calc Pharmacy 98.4 ml/min; Potassium 3.8 mmol/L (3.5-5.1)
--- NOTE | 2024-06-05 09:45 | Orthopedic Progress Note ---
Date of Service June 05, 2024 Assessment & Plan (1) S/P lumbar fusion: Patient is postop day 3 from a lumbar decompression and fusion by Dr. Crain. -Routine pain control -Continue to work with PT/OT for mobilization and ambulation -Per case management note on 06/03/2024, she was accepted at [facility]. - can be discharged once home health is set up. - Follow-up 2 weeks with Breann or ortho PA Subjective Operation Date: 06/02/24 07:15 Actual Procedures p L3-L4, L4-L5 Posterior Laminectomy and Fusion, L3-L4 Lateral Interbody Fusion and Cage Placement, L3,L4,L5 Posterior Instrumentation 3-6 Levels, Spinal Cord Monitoring(Not Applicable) - Mark Anthony Crain MD Patient is postop day 3 from a posterior lumbar decompression and fusion by Dr. Crain. Upon my arrival, she was began to work with physical therapy. She is doing well with transferring out of the bed and using a walker with physical therapy. Per case management note on 06/03/2024, she was accepted at [facility]. No other case management notes in the chart at this time. She is doing well. Denies any numbness or ting in the bilateral lower extremities. Pain is controlled. Review of Systems All systems reviewed & are unremarkable except as noted in HPI & below. Physical Exam General: Alert and oriented. No acute distress. She is well at today's visit. She is working with physical therapy. She has transferred well from a supine to sitting position. She was then working on transferring and walking with physical therapy. She has 5 and 5 strength in the bilateral lower extremities with no paresthesias. She is neurovascularly intact. Results & Data Results & Data Laboratory Results . Diagnostic Findings . PG Care Time/CCT Total # of Minutes Spent Total Time Spent with Patient: Total time spent is greater than 50% in coordination of care (as documented) at patient's floor/unit and/or counseling patient: Coding Level of Care Code 72137 Post Operative Follow-Up Diagnoses S/P lumbar fusion Z98.1
[2024-06-05 10:59] VITALS: PULSE 75; RESP 19; TEMP 98.6; O2SAT 96
--- NOTE | 2024-06-05 12:01 | Hospitalist Progress Note ---
Date of Service June 05, 2024 Assessment & Plan (1) Stenosis, spinal, lumbar: Plan: Postoperative day #3 after L3-L5 laminectomy with fusion and instrumentation. Management per orthopedic spine service (2) Hypotension after procedure: Plan: Midodrine started on June 04. Blood pressure now appears to be stable. She has received multiple intravenous fluid boluses this admission. Hemoglobin is stable. Supportive care (3) Hypothyroidism: Plan: Stable. Continue current thyroid replacement dosage (4) Type 2 diabetes mellitus: Plan: ADA diet. Sliding scale coverage. Glucose was somewhat low this morning. Insulin glargine has been discontinued. She will resume her usual diabetic management at home. She takes Trulicity at home. Plan Home today, June 05, per primary service Admission and Anticipated Discharge Date Admission Date: June 02, 2024 Subjective Alert and oriented. No new problems. Two-step oxygen evaluation was completed and she will need 2 L/min per nasal cannula at rest and with any ambulation. A prescription was provided to her. Postoperative day 3 after lumbar fusion and instrumentation. Blood pressure is acceptable and stable on the midodrine which is new. This should continue at discharge and can be stopped at a later date. Glucose was only 67 this morning and insulin glargine has been discontinued. Hemoglobin is stable at 9.8. She is medically stable for discharge to home todayJune 05 Review of Systems 2 Review of Systems: Constitutionalno fever or chills ENTno blurred vision, no double vision, no epistaxis, no sore throat Respiratoryno cough, no wheezing, no shortness of breath Cardiacno palpitations, no chest pain, no syncope Pricila nausea, vomiting, diarrhea, melena, hematochezia GUno urinary retention, no urinary incontinence, no dysuria, no hematuria Musculoskeletalpostoperative lumbar discomfort as expected. No joint pain, no muscle tenderness Skinno bruising, no rashes, no pruritus Neurono isolated weakness, no paresthesia Psychno depression, no anxiety Physical Exam 2 Physical Exam: General-alert and oriented x3, no fever, no chills HEENT-head atraumatic and normocephalic, pupils equal and reactive to light, extraocular muscles intact Neck-no lymphadenopathy or thyromegaly, trachea midline Chest-clear to auscultation. No rales, wheezing or rhonchi Cardiac-regular rate and rhythm, normal S1 and S2 Abdomen-normal bowel sounds, no hepatosplenomegaly Extremities-no cyanosis, clubbing, or edema Neuro-cranial nerves II through XII intact, motor and sensory function within normal limits, strength symmetrical, no focal deficits Psych-normal affect, normal mood Results & Data Results & Data Vital Signs (Past 12 Hours) Vital Signs Temp Pulse Pulse Pulse Pulse Pulse Resp 06/05/24 10:58 37.0 C 75 19 06/05/24 08:25 86 82 82 06/05/24 08:00 79 06/05/24 07:29 37.3 C 73 15 06/05/24 03:19 37.6 C H 76 18 Resp Resp Resp BP Pulse Ox Pulse Ox Pulse Ox 06/05/24 10:58 112/70 96 06/05/24 08:25 20 18 18 90 92 06/05/24 08:00 06/05/24 07:29 98/68 L 94 06/05/24 03:19 122/76 92 Pulse Ox O2 Del Method O2 Flow Rate O2 Flow Rate O2 Flow Rate 06/05/24 10:58 Nasal Cannula 1.5 06/05/24 08:25 86 L 2 2 06/05/24 08:00 06/05/24 07:29 Nasal Cannula 1.5 06/05/24 03:19 Nasal Cannula 2.0 Laboratory Results 06/05/24 06:54 06/05/24 06:54 PG Care Time/CCT Total # of Minutes Spent Total Time Spent with Patient: Total time spent is greater than 50% in coordination of care (as documented) at patient's floor/unit and/or counseling patient: Coding Level of Care Code 18446 SUB INP/OBS CARE 3/50MIN Diagnoses Stenosis, spinal, lumbar M48.061 Hypotension after procedure I95.81 Hypothyroidism E03.9 Type 2 diabetes mellitus E11.9
--- NOTE | 2024-06-05 12:59 | Discharge Summary ---
Discharge Summary Date of Service June 05, 2024 Principal Dx & Hospital Course #1 = Principal Diagnosis (1) Stenosis, spinal, lumbar: Postoperative day #3 after L3-L5 laminectomy with fusion and instrumentation. Management per orthopedic spine service (2) Hypotension after procedure: Midodrine started on June 04. Blood pressure now appears to be stable. She has received multiple intravenous fluid boluses this admission. Hemoglobin is stable. Supportive care. Will continue midodrine at discharge (3) Hypothyroidism: Stable. Continue current thyroid replacement dosage (4) Type 2 diabetes mellitus: ADA diet. Sliding scale coverage. Glucose was somewhat low this morning. Insulin glargine has been discontinued. She will resume her usual diabetic management at home. She takes Trulicity at home. (5) Acute hypoxic respiratory failure: Two-step oxygen evaluation completed. She will require 2 L of oxygen per nasal cannula at rest and with exertion. This can be weaned off at a later date. Plan Home today, June 05 Admission HPI Per Admitting Provider Pt is a 73 yo female with a past med hx of anxiety, hypothyroidism, DMT2 with associated neuropathy, and degenerative spondylolisthesis who presents to the hospital on 06/02/24 for scheduled laminectomy and fusion, admitted post- operatively for post op hypotension. Pt seen at bedside. Got out of surgery around 5 pm and seen around 7 pm. Pt noted to be very drowsy still post-operatively. She was able to follow commands but fell asleep periodically throughout exam. She denies pain anywhere. Moves all extremities spontaneously. Nursing staff available state she is slowly waking up but it has been slow. They have been able to wean down on her O2 slowly. No reported O2 use at home. Reportedly lives independently. Discharge Exam General-alert and oriented x3, no fever, no chills HEENT-head atraumatic and normocephalic, pupils equal and reactive to light, extraocular muscles intact Neck-no lymphadenopathy or thyromegaly, trachea midline Chest-clear to auscultation. No rales, wheezing or rhonchi Cardiac-regular rate and rhythm, normal S1 and S2 Abdomen-normal bowel sounds, no hepatosplenomegaly Extremities-no cyanosis, clubbing, or edema Neuro-cranial nerves II through XII intact, motor and sensory function within normal limits, strength symmetrical, no focal deficits Psych-normal affect, normal mood Discharge Plan Discharge Items Patient Disposition: Home - Self-Care Reason For Visit: Spinal Stenosis of Cervical Region with Radiculopa Discharge Diagnosis: Lumbar stenosis, postoperative hypotension, acute blood loss anemia, hypomagnesemia, hypoxia Activity: Per Instructions section Non-emergency contact: Primary Care Provider and Surgeon Call non-emergency contact if: you have any medication questions Follow-up/Referrals: Nathanael Dumont MD [Primary Care Provider] - Diet: Carb Consistent or DM2 Addtl Attending Provider Instructions: Continue midodrine for blood pressure support. Wear oxygen at 2 L/min continuously until discontinued by primary care provider. Resume usual diabetic management at home. Follow-up with orthopedic spine surgeon as directed Pending Studies at Discharge: No Stand-Alone Forms: My [employer], Smoking Cessation Medications and DC Order Prescriptions: New oxycodone-acetaminophen [Percocet] 5-325 mg Tablet 1 - 2 tab PO Q4H PRN (Reason: pain) Qty: 20 0RF midodrine 5 mg tablet 5 mg PO TID Qty: 60 0RF Rx Instructions: do not give last dose of day after 6PM or within 4 hrs of bedtime Continued atorvastatin [Lipitor] 20 mg tablet 20 mg PO QPM Qty: 90 1RF methenamine hippurate [Hiprex] 1 gram tablet 1 g PO BID Qty: 180 1RF bupropion HCl [Wellbutrin SR] 150 mg tablet sustained-release 12 hr 150 mg PO QAM Qty: 90 1RF escitalopram oxalate [Lexapro] 10 mg tablet 10 mg PO QAM Qty: 90 1RF levothyroxine 88 mcg tablet 88 mcg PO QAM Qty: 90 1RF ascorbic acid (vitamin C) [Vitamin C] 1,000 mg Tablet 1 g PO QAM cranberry 500 mg Capsule 500 mg PO BID Rx Instructions: administer with meals Probiotic 1 cap PO DAILY ursodiol 300 mg capsule 600 mg PO BID Rx Instructions: take 2 capsules by mouth twice a day calcium carbonate [Calcium 600] 600 mg calcium (1,500 mg) Tablet 600 mg PO QAM zinc 50 mg Tablet 50 mg PO QAM cholecalciferol (vitamin D3) [Vitamin D3] 25 mcg (1,000 unit) Tablet 25 mcg PO QAM aspirin 81 mg Capsule 81 mg PO QAM triamcinolone acetonide 0.1 % cream 1 applic TOP BID PRN (Reason: Skin Irritation) Rx Instructions: apply to ears meloxicam 7.5 mg tablet 7.5 - 15 mg PO DAILY MDD 2 pills Patient Comments: uses only as needed Rx Instructions: With meals if possible. mupirocin 2 % ointment 1 applic topical BID PRN (Reason: ear irritation) Trulicity 0.75 mg/0.5 mL pen injector 0.75 mg SQ Q7D Patient Comments: mondays Discharge Orders: Discharge Order (Routine); Ordered 06/05/24 Ordered By: Moises Becker Admission Data Admit Date/Time: 06/02/24 16:30 Attending Provider: Moises Becker Admit Provider: Mark Anthony Crain Primary Care Provider: Nathanael Dumont Other Providers: Sam Delcid; Sammy Stewart; Moises Becker; Reddy Zhu; Luis M Baez; Darcy Mac; Judi Valentine; Marilou Duffy; Gay Dubose; Braeden Thomason; Leonie Barkley; Prasanna Still; Sammy Lau; Jorge Bacon; Christofer Carlson; Zuly Agustin; Bryanna Carroll; Bryanna Garvin; Grazyna Kelly; Nancy Murray; Ria Mcneal; Isa Monzon; Shahid Dodge; Vinny Lawson; Arlene Oswald; Melissa Bang; Didi Burks; Santos Reis; Rigo Hanley; Moises Barillas; Reddy Cleveland; Mima Goldsmith; Silvana Swan; Deisy Swanson; Romain Muse; Roberto Amaro; Kacie Madison; [place]; Bette García; Roman Little; Birgit Arias; [facility] Stay Data Consultations 06/02/24 16:30 Consult Hospitalist Routine Procedures Performed Operation Date: 06/02/24 07:15 Actual Procedures p L3-L4, L4-L5 Posterior Laminectomy and Fusion, L3-L4 Lateral Interbody Fusion and Cage Placement, L3,L4,L5 Posterior Instrumentation 3-6 Levels, Spinal Cord Monitoring(Not Applicable) - Mark Anthony Crain MD Diagnostic Imagining Performed 06/02/24 07:00 FL lumbar spine 2-3V Routine Pending Results Patient Have Any Pending Studies at Discharge: No Discharge Instructions Given to Patient (Per Discharging Provider) Continue midodrine for blood pressure support. Wear oxygen at 2 L/min continuo usly until discontinued by primary care provider. Resume usual diabetic management at home. Follow-up with orthopedic spine surgeon as directed Total Time Total Time Spent Total Time Spent (In Minutes): 50 minutes Coding Level of Care Code 57985 INP/OBS DISCH >30 MIN Diagnoses Stenosis, spinal, lumbar M48.061 Hypotension after procedure I95.81 Hypothyroidism E03.9 Type 2 diabetes mellitus E11.9 Acute hypoxic respiratory failure J96.01
[2024-06-05 13:05] VITALS: BP 98/70
--- NOTE | 2024-06-05 17:31 | Electrocardiogram Report ---
Test Reason : Blood Pressure : */* mmHG Vent. Rate : 77 BPM Atrial Rate : 77 BPM P-R Int : 156 ms QRS Dur : 92 ms QT Int : 382 ms P-R-T Axes : 63 -45 38 degrees QTcB Int : 432 ms Normal sinus rhythm Left anterior fascicular block Nonspecific T wave abnormality Abnormal ECG When compared with ECG of 02-Jun-2024 19:57, T wave inversion now evident in Anterior leads Confirmed by Kane Blake ([id number]) on 06/05/2024 5:30:41 PM Referred By: Mark Anthony Crain Confirmed By: Kane Blake
== END 2024-06-05 14:00 | disposition home or self-care (01) | DRG 427 ==
LOC: ASU 05:37 → 2E 16:30 → SUATTDRO 16:30
DX: M43.12 Spondylolisthesis, cervical region; Z79.82 Long term (current) use of aspirin; R09.02 Hypoxemia; Z88.2 Allergy status to sulfonamides; Z88.8 Allergy status to other drugs, medicaments and biological substances; Z79.890 Hormone replacement therapy; F32.A Depression, unspecified; Z79.85 Long-term (current) use of injectable non-insulin antidiabetic drugs; M48.061 Spinal stenosis, lumbar region without neurogenic claudication; E11.42 Type 2 diabetes mellitus with diabetic polyneuropathy; D62 Acute posthemorrhagic anemia; E03.9 Hypothyroidism, unspecified; I95.81 Postprocedural hypotension; Z79.899 Other long term (current) drug therapy; E83.42 Hypomagnesemia; M48.02 Spinal stenosis, cervical region; F43.22 Adjustment disorder with anxiety; J45.909 Unspecified asthma, uncomplicated; Z88.1 Allergy status to other antibiotic agents; M50.10 Cervical disc disorder with radiculopathy, unspecified cervical region; F17.210 Nicotine dependence, cigarettes, uncomplicated; Z88.5 Allergy status to narcotic agent; E78.5 Hyperlipidemia, unspecified